=== PATIENT | male | born 1945 | race Caucasian/White ===

== ENCOUNTER 2018-02-26 21:15 | Inpatient (IN) ==
--- OUTSIDE RECORDS SUMMARY | 2018-02-26 21:33 | External Medical Summary | Referral Summary ---
:1945 Author Organization [facility], [facility] Address [address] [place] [address] [place] [address] Care Team Providers Name Role Phone Paul Earl Barragan Primary Care Physician Encounter VC Date(s): 06/12/17 - 06/12/17 [facility] [address] [place] [address] [place] Discharge Disposition: 01-Home or Self Care Attending Physician: Tania Negro APRN Admitting Physician: Tania Negro APRN Vital Signs Most recent to oldest [Reference Range]: 1 Temperature Tympanic [36.6-38.1 degC] 36.7 degC (06/12/17 1:33 PM) Peripheral Pulse Rate [60-100 bpm] 74 bpm (06/12/17 1:33 PM) Blood Pressure [90-140/60-90 mmHg] 116/54 mmHg (06/12/17 1:33 PM) SpO2 98 % (06/12/17 1:33 PM) Problem List Condition Effective Dates Status Health Status Informant Abscess of buttock, right(Confirmed) Active Angina(Confirmed) Resolved Benign essential HTN(Confirmed) Active BPH (benign prostatic Active hypertrophy)(Confirmed) CA - Cancer of colon(Confirmed) 2009 Resolved CAD (coronary artery Resolved disease)(Confirmed) CKD (chronic kidney disease), stage Active III(Confirmed) Colostomy(Confirmed) Resolved Colostomy in place(Confirmed) Active Coronary artery disease(Confirmed) Active Diabetes mellitus(Confirmed) Resolved Type II diabetes mellitus with Active peripheral autonomic neuropathy(Confirmed) Diabetic peripheral < 07/10/16 Resolved neuropathy(Confirmed) Gallbladder disease(Confirmed) Resolved Gout(Confirmed) Resolved History of rectal cancer(Confirmed)1 05/01/10 Active Hyperlipidemia(Confirmed) Active Hypertension(Confirmed) Resolved Irregular heart beat(Confirmed) Resolved Nephrolithiasis(Confirmed) Resolved Obesity(Confirmed) Active patient Peripheral artery disease(Confirmed) Active Diabetes mellitus, type Resolved II(Confirmed) 1Was rectal Cancer on document-05/01/2010 Allergies, Adverse Reactions, Alerts Substance Reaction Severity Status acetaminophen Severe Active shellfish Active Medications allopurinol 100 mg oral tablet 200 mg 2 tabs, Oral, Daily, # 60 tabs, 1 Refill(s), Pharmacy: [id number], 2 tabs Oral Daily Start Date: 03/27/17 Status: OrderedALLOPURINOL 100MG TABLETS See Instructions, TAKE 1 TABLET BY MOUTH DAILY, # 30 tabs, 5 Refill(s), eRx: [facility] [id number], TAKE 1 TABLET BY MOUTH DAILY Start Date: 03/01/17 Status: Orderedaspirin 325 mg oral tablet 325 mg 1 tabs, Oral, Daily, 0 Refill(s) Start Date: 12/27/15 Status: Orderedatorvastatin 40 mg oral tablet See Instructions, TAKE 1 TABLET BY MOUTH EVERY DAY, # 90 tabs, eRx: [facility] [id number] Start Date: 04/15/17 Status: OrderedB-D PEN NDL SHRT [id number](03/19) LUIS F See Instructions, USE TWICE DAILY DIRECTED, # 100 unknown unit, JUAN M, eRx: [facility] [id number], USE TWICE DAILY DIRECTED Start Date: 08/12/14 Status: Orderedcholecalciferol 2000 intl units oral capsule 2,000 Intl_Units 1 caps, Oral, Daily, 0 Refill(s) Start Date: 01/09/17 Status: OrderedCoenzyme Q10 200 mg oral capsule 1 capsule, Oral, Daily, 0 Refill(s) Start Date: 01/09/17 Status: Orderedcontour next test strips contour next test strips, See Instructions, Check blood sugar fasting and 2 hours after meals. DX 250.02, # 100 Each, 0 Refill(s), Pharmacy: [id number], Check blood sugar fasting and 2hours after meals. DX 250.02 Start Date: 06/16/14 Status: Orderedfinasteride 5 mg oral tablet See Instructions, TAKE 1 TABLET BY MOUTH EVERY DAY, # 90 tabs, 1 Refill(s), eRx : [facility], TAKE 1 TABLET BY MOUTH EVERY DAY Start Date: 03/14/17 Status: OrderedGlucometer Lancets (DME) DME Item check blood sugar fasting and 2 hours after meals DX 250.02, See Instructions, # 100 Each,0 Refill(s), Pharmacy: [facility], check blood sugar fasting and 2 hours after mealsDX 250.02, Supply Start Date: 06/16/14 Status: Orderedlisinopril 2.5 mg oral tablet 2.5 mg 1 tabs, Oral, Daily, 0 Refill(s) Start Date: 05/17/17 Status: Orderedmeclizine 25 mg oral tablet 25 mg 1 tabs, Oral, TID, as needed for dizziness, 0 Refill(s) Start Date: 12/27/15 Status: OrderedMetoprolol Tartrate 50 mg oral tablet See Instructions, TAKE 1 TABLET BY MOUTH TWICE DAILY, # 180 tabs, 1 Refill(s), eRx: [facility], TAKE 1 TABLET BY MOUTH TWICE DAILY Start Date: 03/01/17 Status: OrderedMobic 15 mg oral tablet 15 mg 1 tabs, Oral, Daily, # 14 tabs, 0 Refill(s), Pharmacy: [facility], 1 tabs OralDaily Start Date: 03/14/17 Status: OrderedNitrostat 0.4 mg sublingual tablet 0.4 mg 1 tabs, SubLingual, q5min, as needed for chest pain, # 25 tabs, 11 Refill (s), Pharmacy: [facility], 1 tabs SubLingual q5min,x30 days,PRN:as needed for chest pain Start Date: 10/03/15 Stop Date: 09/27/16 Status: OrderedNovoLOG Mix 70/30 FlexPen subcutaneous suspension See Instructions, INJECT 38 UNITS EVERY MORNING AND 38 UNITS AT SUPPER DX E11.43 , # 6 boxes, 3 Refill(s), JUAN M, Pharmacy: [facility] [address] Start Date: 10/09/16 Status: OrderedOstemy supplies Ostemy supplies, See Instructions, DX: 153.9 Fax to [facility] [phone] , # 100 Each, 2 Refill(s) Start Date: 10/19/14 Status: OrderedPlavix 75 mg oral tablet 75 mg 1 tabs, Oral, Daily, 0 Refill(s) Start Date: 12/27/15 Status: Orderedpsyllium 3.4 g/3.7 g oral powder for reconstitution 1.7 g, Oral, BID, as needed for diarrhea, # 300 g, 0 Refill(s) Start Date: 01/09/17 Status: Orderedtamsulosin 0.4 mg oral capsule See Instructions, TAKE 1 CAPSULE BY MOUTH ONCE DAILY MAY TAKE SECOND CAPSULE DAILY NEEDED FOR URINARY RETENTION, # 110 caps, eRx: [facility] [id number], TAKE 1 CAPSULE BY MOUTH ONCE DAILY MAY TAKE SECOND CAPSULE DAILY NEEDED FOR URINARY RET... Start Date: 04/15/17 Status: OrderedVitamin B12 2,500 mcg, Daily, 0 Refill(s) Start Date: 01/07/17 Status: OrderedVitamin C 1,000 mg, Daily, 0 Refill(s) Start Date: 01/07/17 Status: Orderedvitamin E 1,000 Intl_Units, Oral, Daily, 0 Refill(s) Start Date: 01/07/17 Status: Ordered Immunizations Given and Recorded Vaccine Date Status Refusal Reason meningococcal conjugate vaccine1 05/31/17 Given influenza virus vaccine, inactivated2 11/04/15 Recorded influenza virus vaccine, inactivated 08/04/15 Recorded influenza virus vaccine, inactivated 08/06/14 Recorded pneumococcal 13-valent conjugate vaccine 08/04/15 Recorded pneumococcal 23-polyvalent vaccine 08/06/14 Given tetanus/diphtheria/pertussis, acel(Tdap) 11/04/11 Recorded 1Result Comment: MenCYW-135 liquid conjugate component Lot: [id number] Exp: [id number] Comment: [01/07/2017] Patient states he had Fall of 2015. Procedures Procedure Date Related Diagnosis Body Site Placement of stent1 08/15/16 Inpatient Auditor 04/11/16 Placement of stent2 12/19/15 Normal colonoscopy3 08/25/15 Diabetic eye exam4 04/11/15 Carotid endarterectomy5 07/26/14 Colonoscopy6, 7 05/06/14 Cholecystectomy8 05/26/12 Repair of incisional hernia9 05/26/12 Cardiac azeqxvfoubcyhji06 02/14/11 Insertion of implantable venous access port11 06/26/10 Efbsqpezp64 2009 Partial colectomy 2010 Cardiac owuvbybysrgrcle74 2004 CABG - Coronary artery bypass graft14 1998 Knee replacement Mpatonhqlgkqs58 Vasectomy 1Stent oxskfisux0bmzcf iwayaegfc2Dkvevzqq history of colon/rectal cancer, repeat in 3 hmikr3zk diabetic retinopathy see scanned pxqmeskx1Wkfas carotid endarterectomy on July 26, 2014. Dr. Ruff recommended yearly carotid ultrasound to monitor.6No polyps found in [address]Nr of Rectal Ca- 05/01/20108Open cholecystectomy with repair incarcerated incisional ekjyuq1Brfricrcjkhc incisional hernia repair at the same time as cholecystectomy, done in [place]00[place] 50% no stents, grafts remain kzmhor90abgqzyy external jugular wihcich was dissected proximally and distally with 3-0 knuz82UW resection for rectal epjhxo94YQI to RCA patent. SULLIVAN to LAD patent.142 nxfgdg43Rtggxzgkc cataract surgery, fall Social History Social History Type Response Smoking Status Former smoker; Type: Cigarettes1 1smoked for 2 years as a teen.
--- OUTSIDE RECORDS SUMMARY | 2018-02-26 21:33 | External Medical Summary | Clinical Summary ---
:1945 Author Organization [facility] Address [address] [address] Care Team Providers Name Role Phone Unavailable Primary Care Provider Unavailable Allergies Active Allergy Reactions Severity Noted Date Comments Iodinated Diagnostic Agents Shortness Of Breath High 04/15/2015 Shellfish-Derived Products Shortness Of Breath High 04/15/2015 Current Medications Prescription Sig. Disp. Refills Start Date End Date Status famotidine (PEPCID) 20 MG Take 1 tablet 10 tablet 0 04/16/2015 Active tablet (20 mg total) by mouth 2 (two) times daily. methylPREDNISolone Take 1 tablet 21 tablet 0 04/16/2015 Active (MEDROL DOSEPACK) 4 MG (4 mg total) tablet by mouth See Admin Instructions. diphenhydrAMINE Take 2 20 capsule 0 04/16/2015 Active (BENADRYL) 25 mg capsule capsules (50 mg total) by mouth every 6 (six) hours as needed for Itching. Active Problems Not on file Social History Tobacco Use Types Packs/Day Years Used Date Never Smoker Alcohol Use Drinks/Week oz/Week Comments No Sex Assigned at Date Recorded Not on file Last Filed Vital Signs Vital Sign Reading Time Taken Blood Pressure 139/61 04/16/2015 12:45 AM CDT Pulse 67 04/16/2015 12:45 AM CDT Temperature 36.8 C (98.3 F) 04/15/2015 10:44 PM CDT Respiratory Rate 15 04/16/2015 12:45 AM CDT Oxygen Saturation 94% 04/16/2015 12:45 AM CDT Inhaled Oxygen Concentration - - Weight 96.2 kg (212 lb) 04/15/2015 10:44 PM CDT Height 177.8 cm (5' 10") 04/15/2015 10:44 PM CDT Body Mass Index 30.42 04/15/2015 10:44 PM CDT Plan of Treatment Health Maintenance Due Date Last Done Comments DTaP,Tdap,and Td Vaccines (1 - Tdap) 1962 Colon Cancer Screening 1993 Zoster Recombinant Vaccine (RZV,Shingrix) (1 of 2 - SV 1993 2 Dose Standard) Pneumo-Adult (1 of 2 - PCV13) 2008 Annual Wellness Visit 06/11/2009 Influenza Vaccine (Season Ended) 2018 Results Not on filefrom Last 3 Months
--- OUTSIDE RECORDS SUMMARY | 2018-02-26 21:34 | External Medical Summary | Referral Summary ---
:1945 Author Organization [facility] Address [address] [place] [address] Care Team Providers Name Role Phone ItaloEarl garrett Yung Primary Care Physician Encounter VC Date(s): 08/07/17 - 08/07/17 [facility] [address] [place] [address]- Discharge Disposition: 01-Home or Self Care Attending Physician: Anthony Segura MD Problem List Condition Effective Dates Status Health [...] Severe Active shellfish Active Medications allopurinol 100 mg, Oral, BID, 0 Refill(s) Start Date: 08/07/17 Status: Orderedaspirin 325 mg oral tablet 325 mg 1 tabs, Oral, Daily, 0 Refill(s) Start Date: 12/27/15 Status: Orderedatorvastatin 40 mg, Oral, Daily, 0 Refill(s) Start Date: 08/07/17 Status: Orderedfinasteride 5 mg, Oral, Daily, 0 Refill(s) Start Date: 08/07/17 Status: Orderedlisinopril 5 mg, Oral, Daily, 0 Refill(s) Start Date: 08/07/17 Status: OrderedMetoprolol Tartrate 50 mg, Oral, BID, 0 Refill(s) Start Date: 08/07/17 Status: OrderedNitrostat 0.4 mg sublingual tablet 0.4 mg 1 tabs, SubLingual, q5min, as needed for chest pain, # 25 tabs, 11 Refill (s), Pharmacy: [facility], 1 tabs SubLingual q5min,x30 days,PRN:as needed for chest pain Start Date: 10/03/15 Stop Date: 09/27/16 Status: OrderedNovoLOG Mix 70/30 36 units, SubCutaneous, BIDAC, 0 Refill(s) Start Date: 08/07/17 Status: OrderedPlavix 75 mg oral tablet 75 mg 1 tabs, Oral, Daily, 0 Refill(s) Start Date: 12/27/15 Status: Orderedtamsulosin 0.4 mg, Oral, Daily, 0 Refill(s) Start Date: 08/07/17 Status: OrderedVitamin B12 2,500 mcg, Oral, Daily, 0 Refill(s) Start Date: 01/07/17 Status: Orderedvitamin E 1,000 Intl_Units, Oral, Daily, 0 Refill(s) Start Date: 01/07/17 Status: Ordered Results Hematology Most recent to oldest [Reference Range]: 1 WBC [4.8-10.8 10*3/uL] 6.6 10*3/uL (08/07/17 12:03 PM) RBC [4.60-6.20] 4.18 *LOW* (08/07/17 12:03 PM) Hgb [14.0-18.0 gm/dL] 12.8 gm/dL *LOW* (08/07/17 12:03 PM) Hct [42.0-52.0 %] 38.0 % *LOW* (08/07/17 12:03 PM) MCV [82.0-99.0 fL] 90.9 fL (08/07/17:03 PM) MCH [27.0-32.0 pg] 30.6 pg (08/07/17: PM) MCHC [32.0-36.0 gm/dL] 33.7 gm/dL (08/07/17:03 PM) RDW [11.5-14.5 %] 14.4 % (08/07/17: PM) Platelet [150-400 10*3/uL] 109 10*3/uL *LOW* (08/07/17: PM) MPV [9.4-12.3 fL] 11.6 fL (08/07/17: PM) Coagulation Most recent to oldest [Reference Range]: 1 INR [0.9-1.2] 1.1 (08/07/17: PM) PTT [25.0-35.0 seconds] 27.4 seconds (08/07/17: PM) Chemistry Most recent to oldest [Reference Range]: 1 Sodium Lvl [136-144 mEq/L] 136 mEq/L (08/07/17: PM) Potassium Lvl [3.6-5.1 mEq/L] 4.7 mEq/L (08/07/17: PM) Chloride [99-109 mEq/L] 102 mEq/L (08/07/17: PM) CO2 [22-32 mEq/L] 26 mEq/L (08/07/17: PM) AGAP [3-20 mEq/L] 8 mEq/L (08/07/17: PM) BUN [4-20 mg/dL] 29 mg/dL *HI* (08/07/17: PM) Glucose Lvl [70-100 mg/dL] 170 mg/dL *HI* (08/07/17: PM) Creatinine Lvl [0.64-1.27 mg/dL] 1.61 mg/dL *HI* (08/07/17 12: PM) eGFR [>60 mL/min] 42 mL/min 1 *ABN* (08/07/17: PM) Calcium Lvl [8.6-10.0 mg/dL] 9.3 mg/dL (08/07/17 12:03 PM) 1Result Comment: Multiply eGFR results by 1.21 for race. Immunizations Given and Recorded Vaccine Date Status Refusal Reason influenza virus vaccine, inactivated1 06/26/17 Recorded influenza virus vaccine, inactivated2 11/04/15 Recorded influenza virus vaccine, inactivated 08/04/15 Recorded influenza virus vaccine, inactivated 08/06/14 Recorded meningococcal conjugate vaccine3 05/31/17 Given pneumococcal 13-valent conjugate vaccine 08/04/15 Recorded pneumococcal 23-polyvalent vaccine 08/06/14 Given tetanus/diphtheria/pertussis, acel(Tdap) 11/04/11 Recorded 1Result Comment: [06/27/2017] DONE AT [id number] Comment: [01/07/2017] Patient states he had Fall of 2015.3Result Comment: MenCYW-135 liquid conjugate component Lot: [id number] Exp: 07/2018 Procedures Procedure Date Related Diagnosis Body Site Collection of venous blood by venipuncture 08/07/17 Placement of stent1 08/15/16 Physical Therapy Supervisor 04/11/16 Placement of stent2 12/19/15 Normal colonoscopy3 08/25/15 Diabetic eye exam4 04/11/15 Carotid endarterectomy5 07/26/14 Colonoscopy6, 7 05/06/14 Cholecystectomy8 05/26/12 Repair of incisional hernia9 05/26/12 Cardiac jfudjtwvxmhcpwa17 02/14/11 Insertion of implantable venous access port11 06/26/10 Ojppieitd23 2009 Partial colectomy 2009 Cardiac iktmxxxmclyilxg32 2004 CABG - Coronary artery bypass graft14 1998 Meniscus of knee joint15 Adwdiqkfufvxf19 Vasectomy 1Stent ivuthicke3havlx bjxehjskx0Wymondtt history of colon/rectal cancer, repeat in 3 zhbrn5mf diabetic retinopathy see scanned hnhivylu8Eflpb carotid endarterectomy on July 26, 2014. Dr. Ruff recommended yearly carotid ultrasound to monitor.6No polyps found in [address]Zl of Rectal Ca- 05/01/20108Open cholecystectomy with repair incarcerated incisional hwjitw2Mcqyxawgkplo incisional hernia repair at the same time as cholecystectomy, done in Mjnhnfihaxdk17TU 50% no stents, grafts remain agnqtl61rpzivik external jugular wihcich was dissected proximally and distally with 3-0 pwpu83OW resection for rectal huhyvr03FWI to RCA patent. SULLIVAN to LAD patent.142 jmamub40lwhv knee wqcheb97Mxyfccvqg cataract surgery, fall 2015 Social History Social History Type Response Smoking Status Former smoker; Type: Cigarettes1 entered on: 01/07/17 1smoked for 2 years as a teen.
--- OUTSIDE RECORDS SUMMARY | 2018-02-26 21:34 | External Medical Summary | Referral Summary ---
:1945 Author Organization [facility] Address [address] [place] [address] [place] [address] Care Team Providers Name Role Phone Paul Earl Yung Primary Care Physician Encounter VC Date(s): 06/25/17 - 06/25/17 [facility] [address] [place] [address]- [place] Discharge Disposition: 01-Home or Self Care Attending Physician: Tania Negro APRN Admitting Physician: Tania Negro APRN Vital Signs Most recent to oldest [Reference Range]: 1 Peripheral Pulse Rate [60-100 bpm] 70 bpm (06/25/17 9:17 AM) Blood Pressure [90-140/60-90 mmHg] 130/68 mmHg (06/25/17 9:17 AM) SpO2 98 % (06/25/17 9:17 AM) Problem List Condition Effective Dates Status Health [...] Daily, # 60 tabs, 1 Refill(s), Pharmacy: [facility] [address], 2 tabs Oral Daily Start Date: 03/27/17 Status: OrderedALLOPURINOL 100MG TABLETS See Instructions, TAKE 1 TABLET BY MOUTH DAILY, # 30 tabs, 5 Refill(s), eRx: [facility] [id number], TAKE 1 TABLET BY MOUTH DAILY Start Date: 03/01/17 Status: Orderedaspirin 325 mg oral tablet 325 mg 1 tabs, Oral, Daily, 0 Refill(s) Start Date: 12/27/15 Status: Orderedatorvastatin 40 mg oral tablet See Instructions, TAKE 1 TABLET BY MOUTH EVERY DAY, # 90 tabs, eRx: [facility] [address] Start Date: 04/15/17 Status: OrderedB-D PEN NDL SHRT 35WX8MM(03/19) LUIS F See Instructions, USE TWICE DAILY DIRECTED, # 100 unknown unit, JUAN M, eRx: [facility] [id number], USE TWICE DAILY DIRECTED Start Date: 08/12/14 [...] 250.02, # 100 Each, 0 Refill(s), Pharmacy: [facility] [address], Check blood sugar fasting and 2hours after meals. DX 250.02 Start Date: 06/16/14 Status: Orderedfinasteride 5 mg oral tablet See Instructions, TAKE 1 TABLET BY MOUTH EVERY DAY, # 90 tabs, 1 Refill(s), eRx : [facility] [id number], TAKE 1 TABLET BY MOUTH EVERY DAY Start Date: 03/14/17 Status: OrderedGlucometer Lancets (DME) DME Item check blood sugar fasting and 2 hours after meals DX 250.02, See Instructions, # 100 Each,0 Refill(s), Pharmacy: [facility] [address], check blood sugar fasting and 2 hours [...] DAILY, # 180 tabs, 1 Refill(s), eRx: [facility], TAKE 1 TABLET BY MOUTH TWICE DAILY Start Date: 03/01/17 Status: OrderedMobic 15 mg oral tablet 15 mg 1 tabs, Oral, Daily, # 14 tabs, 0 Refill(s), Pharmacy: [facility], 1 tabs OralDaily Start Date: 03/14/17 Status: OrderedNitrostat 0.4 mg sublingual tablet 0.4 mg 1 tabs, SubLingual, q5min, as needed for chest pain, # 25 tabs, 11 Refill (s), Pharmacy: [facility], 1 tabs SubLingual q5min,x30 days,PRN:as needed for chest pain Start Date: 10/03/15 Stop Date: 09/27/16 Status: OrderedNovoLOG Mix 70/30 FlexPen subcutaneous suspension See Instructions, INJECT 38 UNITS EVERY MORNING AND 38 UNITS AT SUPPER DX E11.43 , # 6 boxes, 3 Refill(s), JUAN M, Pharmacy: [facility] [address] Start Date: 10/09/16 Status: OrderedOstemy supplies Ostemy supplies, See Instructions, DX: 153.9 Fax to [facility] [phone] , # 100 Each, 2 Refill(s) Start [...] FOR URINARY RETENTION, # 110 caps, eRx: [facility] [address], TAKE 1 CAPSULE BY MOUTH ONCE DAILY MAY TAKE SECOND CAPSULE DAILY NEEDED FOR URINARY RET... Start Date: 04/15/17 Status: OrderedTopicort 0.05% topical cream 1 lorena, Topical, TID, # 60 g, 0 Refill(s), Pharmacy: [facility] [address] Start Date: 06/25/17 Status: OrderedVitamin B12 2,500 mcg, Daily, 0 [...] 1Result Comment: MenCYW-135 liquid conjugate component Lot: [id number] Exp: [id number] Comment: [01/07/2017] Patient states he had Fall of 2015. Procedures Procedure Date Related Diagnosis Body Site Placement of stent1 08/15/16 Manager Emergency Department 04/11/16 Placement of stent2 12/19/15 Normal colonoscopy3 08/25/15 Diabetic eye exam4 04/11/15 Carotid endarterectomy5 07/26/14 Colonoscopy6, 7 05/06/14 Cholecystectomy8 05/26/12 Repair of incisional hernia9 05/26/12 Cardiac kfezauueoafcbln56 02/14/11 Insertion of implantable venous access port11 06/26/10 Qrqvejsvh49 2009 Partial colectomy 2010 Cardiac tpvbfheciuyyfug58 2004 CABG - Coronary artery bypass graft14 1998 Knee replacement Hvwgrucwxxqwh44 Vasectomy 1Stent dugpldveo3xuvko olbipqlru9Dhdpxura history of colon/rectal cancer, repeat in 3 cwiol0mf diabetic retinopathy see scanned owxgtnsd7Shaua carotid endarterectomy on July 26, 2014. Dr. Ruff recommended yearly carotid ultrasound to monitor.6No polyps found in [address]Yy of Rectal Ca- 05/01/20108Open cholecystectomy with repair incarcerated incisional cfkbux6Lpwtrfyqgila incisional hernia repair at the same time as cholecystectomy, done in [place]av[place]yirkpbs[place] 50% no stents, grafts remain oekzjb19joybpmt external jugular wihcich was dissected proximally and distally with 3-0 hpey01BC resection for rectal ejzdcw17BER to RCA patent. SULLIVAN to LAD patent.142 inlqht91Vylgpnnjq cataract surgery, fall Social History Social History Type Response Smoking Status Former smoker; Type: Cigarettes1 1smoked for 2 years as a teen.
--- OUTSIDE RECORDS SUMMARY | 2018-02-26 21:35 | External Medical Summary | Referral Summary ---
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 Discharge Diagnosis: Gout Discharge Disposition: 01-Home or Self Care Attending Physician: Earl Miller MD Admitting Physician: Earl Miller MD Vital Signs Most recent to oldest [Reference Range]: 1 Peripheral Pulse Rate [60-100 bpm] 68 bpm (02/15/17 10:50 AM) Respiratory Rate [14-20 br/min] 20 br/min (02/15/17 10:50 AM) Blood Pressure [90-140/60-90 mmHg] 144/70 mmHg *HI* (02/15/17 10:50 AM) SpO2 96 % (02/15/17 10:50 AM) Problem List Condition Effective Dates Status [...] Active Medications allopurinol 100 mg oral tablet 100 mg 1 tabs, Oral, Daily, # 30 tabs, 6 Refill(s), Pharmacy: [facility] [id number], 1 tabs Oral Daily Start Date: 07/30/16 Status: Orderedaspirin 325 mg oral tablet 325 mg 1 tabs, Oral, Daily, 0 Refill(s) Start Date: 12/27/15 Status: Orderedatorvastatin 40 mg oral tablet See Instructions, TAKE 1 TABLET BY MOUTH EVERY DAY, # 90 tabs, eRx: [facility] [id number], TAKE1 TABLET BY MOUTH EVERY DAY Start Date: 01/08/17 Status: OrderedB-D PEN NDL SHRT [id number](03/19) LUIS F See Instructions, USE TWICE DAILY DIRECTED, # 100 unknown unit, JUAN M, eRx: [facility] [id number], USE TWICE DAILY DIRECTED Start Date: 08/12/14 [...] 250.02, # 100 Each, 0 Refill(s), Pharmacy: [facility] [id number], Check blood sugar fasting and 2hours after meals. DX 250.02 Start Date: 06/16/14 Status: Orderedfinasteride 5 mg oral tablet 5 mg 1 tabs, Oral, Daily, # 90 tabs, 1 Refill(s), Pharmacy: [facility] [id number], 1 tabs Oral Daily Start Date: 07/10/16 Status: OrderedGlucometer Lancets (DME) DME Item check blood sugar fasting and 2 hours after meals DX 250.02, See Instructions, # 100 Each,0 Refill(s), Pharmacy: [facility] [id number], check blood sugar fasting and 2 hours after mealsDX 250.02, Supply Start Date: 06/16/14 Status: Orderedmeclizine 25 mg oral tablet 25 mg 1 tabs, Oral, TID, as needed for dizziness, 0 Refill(s) Start Date: 12/27/15 Status: Orderedmetoprolol tartrate 50 mg oral tablet 50 mg 1 tabs, Oral, BID, # 180 tabs, 1 Refill(s), Pharmacy: [facility] [id number] Start Date: 07/10/16 Status: OrderedNitrostat 0.4 mg sublingual tablet 0.4 mg 1 tabs, SubLingual, q5min, as needed for chest pain, # 25 tabs, 11 Refill (s), Pharmacy: [id number], 1 tabs SubLingual q5min,x30 days,PRN:as needed for chest pain Start Date: 10/03/15 Stop Date: 09/27/16 Status: OrderedNovoLOG Mix 70/30 FlexPen subcutaneous suspension See Instructions, INJECT 38 UNITS EVERY MORNING AND 38 UNITS AT SUPPER DX E11.43 , # 6 boxes, 3 Refill(s), JUAN M, Pharmacy: [facility] [id number] Start Date: 10/09/16 Status: OrderedOstemy supplies Ostemy supplies, See Instructions, DX: 153.9 Fax to [facility] [phone] , # 100 Each, 2 Refill(s) Start Date: 10/19/14 Status: OrderedPlavix 75 mg oral tablet 75 mg 1 tabs, Oral, Daily, 0 Refill(s) Start Date: 12/27/15 Status: Orderedpsyllium 3.4 g/3.7 g oral powder for reconstitution 1.7 g, Oral, BID, as needed for diarrhea, # 300 g, 0 Refill(s) Start Date: 01/09/17 Status: Orderedtamsulosin 0.4 mg oral capsule 0.4 mg 1 caps, Oral, Daily, May take a second dose in the day as needed for urinary retention, # 90 caps, 1 Refill(s), Pharmacy: [facility] [id number] , 1 caps Oral Daily,x90 days,Instr:May take a second dose in the day as needed for urinary reten... Start Date: 07/10/16 Stop Date: 01/06/17 Status: OrderedVitamin B12 2,500 mcg, Daily, 0 Refill(s) Start Date: 01/07/17 Status: OrderedVitamin C 1,000 mg, Daily, 0 Refill(s) Start Date: 01/07/17 Status: Orderedvitamin E 1,000 Intl_Units, Oral, Daily, 0 Refill(s) Start Date: 01/07/17 Status: Ordered Results Chemistry Most recent to oldest [Reference Range]: 1 Uric Acid [3.5-7.2 mg/dL] 7.6 mg/dL *HI* (02/15/17 11:45 AM) Immunizations Given and Recorded Vaccine Date Status Refusal Reason influenza virus vaccine, inactivated1 11/04/15 Recorded influenza virus vaccine, inactivated 08/04/15 Recorded influenza virus vaccine, inactivated 08/06/14 Recorded pneumococcal 13-valent conjugate vaccine 08/04/15 Recorded pneumococcal 23-polyvalent vaccine 08/06/14 Given tetanus/diphtheria/pertussis, acel(Tdap) 11/04/11 Recorded 1Result Comment: [01/07/2017] Patient states he had Fall of 2015. Procedures Procedure Date Related Diagnosis Body Site Placement of stent1 08/15/16 Vp Legal Affairs 04/11/16 Placement of stent2 12/19/15 Normal colonoscopy3 08/25/15 Diabetic eye exam4 04/11/15 Carotid endarterectomy5 07/26/14 Colonoscopy6, 7 05/06/14 Cholecystectomy8 05/26/12 Repair of incisional hernia9 05/26/12 Cardiac sjwtupxewfhvrnc01 02/14/11 Insertion of implantable venous access port11 06/26/10 Sxdfmvyvb93 2009 Partial colectomy 2010 Cardiac lrepyejeynuflqo23 2004 CABG - Coronary artery bypass graft14 1998 Knee replacement Buhvbvtthuzmx35 Vasectomy 1Stent uypaveulo6cpdzx tcquffkbp4Fdbscreu history of colon/rectal cancer, repeat in 3 oausq3jf diabetic retinopathy see scanned sxeyyjzu5Zcmjg carotid endarterectomy on July 26, 2014. Dr. Ruff recommended yearly carotid ultrasound to monitor.6[place]ps [place] [address]Ui of Rectal Ca- 05/01/20108Open cholecystectomy with repair incarcerated incisional gajxda1Kiorgxuaoyfz incisional hernia repair at the same time as cholecystectomy, done in Vvqcmignltdm41LD 50% no stents, grafts remain pvdmok85qtvebtx external jugular wihcich was dissected proximally and distally with 3-0 ooiq60WF resection for rectal azkpno63ZZA to RCA patent. SULLIVAN to LAD patent.142 aqqcth24Fgmbuwkoy cataract surgery, fall Social History Social History Type Response Smoking Status Former smoker; Type: Cigarettes1 1smoked for 2 years as a teen. Assessment and Plan Extracted from: Title: CRMMP Author: Earl Miller MD Date: 02/15/17 Impression and Plan Diagnosis Personal history of other malignant neoplasm of large intestine (XAD79-QA Z85.038, Discharge, Medical). Benign essential HTN (TYJ65-RC I10, Discharge, Medical). 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 Gout (HDO29-RS M10.9, Discharge, Medical). CKD (chronic kidney disease), stage III (TSN72-EB N18.3, Discharge, Medical). Hyperlipidemia (CXJ89-WD E78.5, Discharge, Medical). Orders Orders (Selected) Outpatient Orders Future (On Hold) Uric Acid: .
--- OUTSIDE RECORDS SUMMARY | 2018-02-26 21:35 | External Medical Summary | Referral Summary ---
:1945 Author Organization [facility] Address [address] [place] [address] Care Team Providers Name Role Phone ItaloEarl garrett Yung Primary Care Physician Encounter VC Date(s): 09/17/17 - 09/18/17 [facility] [address] [place] [address] [place] Discharge Diagnosis: Sensory hearing loss, bilateral Discharge Disposition: 01-Home or Self Care Attending Physician: Anthony Segura MD Admitting Physician: Anthony Segura MD Vital Signs Most recent to oldest [Reference Range]: 1 Temperature Oral [35.8-37.3 degC] 37 degC (09/18/17 7:00 AM) Temperature Temporal Artery [36.3-37.8 degC] 35.8 degC *LOW* (09/17/17 5:00 PM) Peripheral Pulse Rate [60-100 bpm] 64 bpm (09/17/17 7:57 PM) Heart Rate Monitored [60-100 bpm] 73 bpm (09/18/17 7:00 AM) Respiratory Rate [14-20 br/min] 18 br/min (09/18/17 7:00 AM) Blood Pressure [90-140/60-90 mmHg] 127/60 mmHg (09/18/17 7:00 AM) Mean Arterial Pressure, Cuff 105 mmHg (09/17/17 5:00 PM) SpO2 94 % (09/18/17 7:00 AM) Remote Telemetry Ongoing (09/18/17 5:24 AM) Problem List Condition Effective Dates Status Health Status Informant Abscess of buttock, right(Confirmed) Active Acute pain(Confirmed) Active Angina(Confirmed) Resolved Benign essential HTN(Confirmed) Active [...] Reactions, Alerts Substance Reaction Severity Status acetaminophen Hive Severe Active shellfish Hive Active iodine Hive Active Medications allopurinol 100 mg, Oral, BID, 0 Refill(s) Start Date: 08/07/17 Status: Orderedaspirin 325 mg oral tablet 325 mg 1 tabs, Oral, Daily, 0 Refill(s) Start Date: 12/27/15 Status: Orderedatorvastatin 40 mg, Oral, Daily, 0 Refill(s) Start Date: 08/07/17 Status: Orderedfinasteride 5 mg, Oral, Daily, 0 Refill(s) Start Date: 08/07/17 Status: Orderedlisinopril 5 mg, Oral, Daily, 0 Refill(s) Start Date: 08/07/17 Status: Orderedmeclizine 25 mg oral tablet 25 mg 1 tabs, Oral, q6hr, Vertigo/Motion Sickness, # 30 tabs, 0 Refill(s), Pharmacy: [facility] [id number], 1 tabs Oral q6hr,PRN:Vertigo/Motion Sickness Start Date: 09/18/17 Stop Date: 10/22/17 Status: OrderedMetoprolol Tartrate 50 mg, Oral, BID, 0 Refill(s) Start Date: 08/07/17 Status: OrderedNitrostat 0.4 mg sublingual tablet 0.4 mg 1 tabs, SubLingual, q5min, as needed for chest pain, # 25 tabs, 11 Refill (s), Pharmacy: [id number], 1 tabs SubLingual q5min,x30 days,PRN:as needed for chest pain Start Date: 10/03/15 Stop Date: 09/27/16 Status: OrderedNovoLOG Mix 70/30 36 units, SubCutaneous, BIDAC, 0 Refill(s) Start Date: 08/07/17 Status: Orderedtamsulosin 0.4 mg, Oral, Daily, 0 Refill(s) Start Date: 08/07/17 Status: OrderedVitamin B12 2,500 mcg, Oral, Daily, 0 Refill(s) Start Date: 01/07/17 Status: OrderedVitamin D3 0 Refill(s) Start Date: 09/17/17 Status: Orderedvitamin E 1,000 Intl_Units, Oral, Daily, 0 Refill(s) Start Date: 01/07/17 Status: Ordered Results Hematology Most recent to oldest [Reference Range]: 1 WBC [4.8-10.8 10*3/uL] 10.7 10*3/uL (09/18/17 4:40 AM) RBC [4.60-6.20] 3.89 *LOW* (09/18/17 4:40 AM) Hgb [14.0-18.0 gm/dL] 11.8 gm/dL *LOW* (09/18/17 4:40 AM) Hct [42.0-52.0 %] 35.2 % *LOW* (09/18/17 4:40 AM) MCV [82.0-99.0 fL] 90.5 fL (09/18/17 4:40 AM) MCH [27.0-32.0 pg] 30.3 pg (09/18/17 4:40 AM) MCHC [32.0-36.0 gm/dL] 33.5 gm/dL (09/18/17 4:40 AM) RDW [11.5-14.5 %] 14.2 % (09/18/17 4:40 AM) Platelet [150-400 10*3/uL] 105 10*3/uL *LOW* (09/18/17 4:40 AM) MPV [9.4-12.3 fL] 11.5 fL (09/18/17 4:40 AM) Immature Granulocytes [0.0-1.0 %] 0.3 % (09/18/17 4:40 AM) Neutrophils [51-75 %] 84 % *HI* (09/18/17 4:40 AM) Lymphocytes [20-46 %] 8 % *LOW* (09/18/17 4:40 AM) Monocytes [4-11 %] 8 % (09/18/17 4:40 AM) Eosinophils [0-4 %] 0 % (09/18/17 4:40 AM) Basophils [0-2 %] 0 % (09/18/17 4:40 AM) Neutro Absolute [1.90-7.00] 8.98 *HI* (09/18/17 4:40 AM) Lymph Absolute [0.80-3.30] 0.86 (09/18/17 4:40 AM) [place] Absolute [0.30-1.00] 0.85 (09/18/17 4:40 AM) Eos Absolute [0.00-0.50] 0.00 (09/18/17 4:40 AM) Baso Absolute [0.00-0.20] 0.00 (09/18/17 4:40 AM) Nucleated RBC Automated [0 /100 WBC] 0.0 /100 WBC (09/18/17 4:40 AM) Coagulation Most recent to oldest [Reference Range]: 1 INR [0.9-1.2] 1.0 (09/17/17 6:58 AM) PTT [25.0-35.0 seconds] 28.4 seconds (09/17/17 6:58 AM) Chemistry Most recent to oldest [Reference Range]: 1 Sodium Lvl [136-144 mEq/L] 135 mEq/L *LOW* (09/18/17 4:40 AM) Potassium Lvl [3.6-5.1 mEq/L] 4.5 mEq/L (09/18/17 4:40 AM) Chloride [99-109 mEq/L] 100 mEq/L (09/18/17 4:40 AM) CO2 [22-32 mEq/L] 26 mEq/L (09/18/17 4:40 AM) AGAP [3-20 mEq/L] 9 mEq/L (09/18/17 4:40 AM) BUN [4-20 mg/dL] 23 mg/dL *HI* (09/18/17 4:40 AM) Glucose Lvl [70-100 mg/dL] 240 mg/dL *HI* (09/18/17 4:40 AM) Creatinine Lvl [0.64-1.27 mg/dL] 1.50 mg/dL *HI* (09/18/17 4:40 AM) eGFR [>60 mL/min] 46 mL/min 1 *ABN* (09/18/17 4:40 AM) Calcium Lvl [8.6-10.0 mg/dL] 8.7 mg/dL (09/18/17 4:40 AM) Magnesium Lvl [1.8-2.5 mg/dL] 1.7 mg/dL *LOW* (09/18/17 4:40 AM) Troponin [<0.06 ng/mL] <0.05 ng/mL (09/17/17 4:24 PM) Blood Glucose, Capillary [70-100 mg/dL] 258 mg/dL *HI* (09/18/17 9:39 AM) 1Result Comment: Multiply eGFR results by 1.21 [...] 11/04/11 Recorded 1Result Comment: [06/27/2017] DONE AT [id number] Comment: [01/07/2017] Patient states he had Fall of 2015.3Result Comment: MenCYW-135 liquid conjugate component Lot: [id number] Exp: 07/2018 Procedures Procedure Date Related Diagnosis Body Site Implant Cochlear1 09/17/17 Placement of stent2 08/15/16 Dietitian Consultant 04/11/16 Placement of stent3 12/19/15 Normal colonoscopy4 08/25/15 Diabetic eye exam5 04/11/15 Carotid endarterectomy6 07/26/14 Colonoscopy7, 8 05/06/14 Cholecystectomy9 05/26/12 Repair of incisional trqdki23 05/26/12 Cardiac fjiuiavatwykibw34 02/14/11 Insertion of implantable venous access port12 06/26/10 Qgnlryelm86 2009 Partial colectomy 2010 Cardiac oxzkowrxuynnnrs20 2004 CABG - Coronary artery bypass graft15 1998 Meniscus of knee joint16 Bavnahxrdfilm82 Vasectomy 1auto-populated from documented surgical kjma3Dzjwe hcxngjycc8pzlxx uebqklwjf4Qyrsrjbe history of colon/rectal cancer, repeat in 3 uemsq8ta diabetic retinopathy see scanned xanqrbqn6Cmxbf carotid endarterectomy on July 26, 2014. Dr. Ruff recommended yearly carotid ultrasound to monitor.7No polyps found in [address]Bm of Rectal Ca- 05/01/20109Open cholecystectomy with repair incarcerated incisional lbwvqk38Okvpcdlhnlam incisional hernia repair at the same time as cholecystectomy, done in Ynxnknoycwsz07PC 50% no stents, grafts remain hdczgt64xqvlshx external jugular wihcich was dissected proximally and distally with 3-0 dihr41PS resection for rectal bvtvfs31KAY to RCA patent. SULLIVAN to LAD patent.152 wcmjsr60yrly knee inrhxl96Kpcoogukc cataract surgery, fall Social History Social History Type Response Smoking Status Former smoker; Type: Cigarettes1 entered on: 01/07/17 1smoked for 2 years as a teen.
--- OUTSIDE RECORDS SUMMARY | 2018-02-26 21:36 | External Medical Summary | Referral Summary ---
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 Discharge Diagnosis: Anemia Discharge Diagnosis: Benign essential HTN Discharge Diagnosis: CKD (chronic kidney disease), stage III Discharge Disposition: 01-Home or Self Care Attending Physician: Earl Miller MD Admitting Physician: Earl Miller MD Vital Signs Most recent to oldest [Reference Range]: 1 Temperature Tympanic [36.6-38.1 degC] 36.5 degC *LOW* (08/16/17 10:33 AM) Peripheral Pulse Rate [60-100 bpm] 72 bpm (08/16/17 10:33 AM) Respiratory Rate [14-20 br/min] 16 br/min (08/16/17 10:33 AM) Blood Pressure [90-140/60-90 mmHg] 128/66 mmHg (08/16/17 10:33 AM) SpO2 95 % (08/16/17 10:33 AM) Problem List Condition Effective Dates Status [...] Daily, 0 Refill(s) Start Date: 08/07/17 Status: Orderedcephalexin 250 mg oral tablet 250 mg 1 tabs, Oral, QID, X 5 days, # 20 tabs, 0 Refill(s), Pharmacy: [facility] [id number], 1 tabs Oral QID,x5 days Start Date: 08/16/17 Stop Date: 08/21/17 Status: Orderedfinasteride 5 mg, Oral, Daily, 0 Refill(s) Start Date: 08/07/17 Status: Orderedlisinopril 5 mg, Oral, Daily, 0 Refill(s) Start Date: 08/07/17 Status: OrderedMetoprolol Tartrate 50 mg, Oral, BID, 0 Refill(s) Start Date: 08/07/17 Status: OrderedNitrostat 0.4 mg sublingual tablet 0.4 mg 1 tabs, SubLingual, q5min, as needed for chest pain, # 25 tabs, 11 Refill (s), Pharmacy: [facility], 1 tabs SubLingual q5min,x30 days,PRN:as needed for [...] 11/04/11 Recorded 1Result Comment: [06/27/2017] DONE AT [id number] Comment: [01/07/2017] Patient states he had Fall of 2015.3Result Comment: MenCYW-135 liquid conjugate component Lot: [id number] Exp: 07/2018 Procedures Procedure Date Related Diagnosis Body Site Incision and drainage of abscess (eg, carbuncle, 08/16/17 suppurative hidradenitis, cutaneous or subcutaneous abscess, cyst, furuncle, or paronychia); simple or single Placement of stent1 08/15/16 Blow Torch Burner 04/11/16 Placement of stent2 12/19/15 Normal colonoscopy3 08/25/15 Diabetic eye exam4 04/11/15 Carotid endarterectomy5 07/26/14 Colonoscopy6, 7 05/06/14 Cholecystectomy8 05/26/12 Repair of incisional hernia9 05/26/12 Cardiac lvcrnnnimbiszxc63 02/14/11 Insertion of implantable venous access port11 06/26/10 Xkkhzrlsh02 2009 Partial colectomy 2010 Cardiac rqcwjmyxulhgwxw64 2004 CABG - Coronary artery bypass graft14 1998 Meniscus of knee joint15 Nwerlwzfwzdtf52 Vasectomy 1Stent rffbnwokl4fzijd kduvuhmzd0Eriwpfyp history of colon/rectal cancer, repeat in 3 vbtbf2sf diabetic retinopathy see scanned cbentfjg3Piqkd carotid endarterectomy on July 26, 2014. Dr. Ruff recommended yearly carotid ultrasound to monitor.6No polyps found in [address]Hv of Rectal Ca- 05/01/20108Open cholecystectomy with repair incarcerated incisional wzapgt4Cmtlaqbjmjcy incisional hernia repair at the same time as cholecystectomy, done in Avoffrcxgusk76WF 50% no stents, grafts remain xpkbek34wjldwde external jugular wihcich was dissected proximally and distally with 3-0 ices94ZN resection for rectal hzjkrz72DTB to RCA patent. SULLIVAN to LAD patent.142 jwvqyu76mkaf knee phknhr41Mpccwatad cataract surgery, fall of 2015 Social History Social History Type Response Smoking Status Former smoker; Type: Cigarettes1 entered on: 01/07/17 1smoked for 2 years as a teen. 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 Sebaceous cyst (YFV70-PR L72.3, Discharge, Medical). CKD (chronic kidney disease), stage III (IQG57-BC N18.3, Discharge, Medical). Benign essential HTN (ZNS03-JF I10, Discharge, Medical). Anemia (ERX72-UH D64.9, Discharge, Medical). Orders Orders (Selected) Outpatient Orders Future (On Hold) CBC w/ Differential: Hgb A1c: Hgb A1c: Prescriptions Prescribed cephalexin 250 mg oral tablet: 250 mg=1 tabs, Oral, QID, for 5 days, 20 tabs, 0 Refill(s).
--- OUTSIDE RECORDS SUMMARY | 2018-02-26 21:36 | External Medical Summary | Referral Summary ---
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 Discharge Diagnosis: Leg weakness Discharge Diagnosis: History of colon cancer Discharge Diagnosis: CKD (chronic kidney disease), stage III Discharge Diagnosis: Benign essential HTN Discharge Diagnosis: Coronary artery disease Discharge Disposition: 01-Home or Self Care Attending Physician: Earl Miller MD Admitting Physician: Earl Miller MD Vital Signs Most recent to oldest [Reference Range]: 1 Peripheral Pulse Rate [60-100 bpm] 66 bpm (05/17/17 11:12 AM) Respiratory Rate [14-20 br/min] 18 br/min (05/17/17 11:12 AM) Blood Pressure [90-140/60-90 mmHg] 118/69 mmHg (05/17/17 11:12 AM) Problem List Condition Effective Dates Status [...] Daily, # 60 tabs, 1 Refill(s), Pharmacy: [id number], 2 tabs Oral Daily Start Date: 03/27/17 Status: OrderedALLOPURINOL 100MG TABLETS See Instructions, TAKE 1 TABLET BY MOUTH DAILY, # 30 tabs, 5 Refill(s), eRx: [facility] [id number], TAKE 1 TABLET BY MOUTH DAILY Start Date: 03/01/17 Status: Orderedaspirin 325 mg oral tablet 325 mg 1 tabs, Oral, Daily, 0 Refill(s) Start Date: 12/27/15 Status: Orderedatorvastatin 40 mg oral tablet See Instructions, TAKE 1 TABLET BY MOUTH EVERY DAY, # 90 tabs, eRx: [facility] [id number] Start Date: 04/15/17 Status: OrderedB-D PEN NDL SHRT 08GE0SX(03/19) LUIS F See Instructions, USE TWICE DAILY DIRECTED, # 100 unknown unit, JUAN M, eRx: [facility] [id number], USE TWICE DAILY DIRECTED Start Date: 08/12/14 [...] 250.02, # 100 Each, 0 Refill(s), Pharmacy: [facility] 31427, Check blood sugar fasting and 2hours after meals. DX 250.02 Start Date: 06/16/14 Status: Orderedfinasteride 5 mg oral tablet See Instructions, TAKE 1 TABLET BY MOUTH EVERY DAY, # 90 tabs, 1 Refill(s), eRx : [email or web address] [address], TAKE 1 TABLET BY MOUTH EVERY DAY Start Date: 03/14/17 Status: OrderedGlucometer Lancets (DME) DME Item check blood sugar fasting and 2 hours after meals DX 250.02, See Instructions, # 100 Each,0 Refill(s), Pharmacy: [email or web address] [address], check blood sugar fasting and 2 hours [...] DAILY, # 180 tabs, 1 Refill(s), eRx: [email or web address] [address]691, TAKE 1 TABLET BY MOUTH TWICE DAILY Start Date: 03/01/17 Status: OrderedMobic 15 mg oral tablet 15 mg 1 tabs, Oral, Daily, # 14 tabs, 0 Refill(s), Pharmacy: [email or web address], 1 tabs OralDaily Start Date: 03/14/17 Status: OrderedNitrostat 0.4 mg sublingual tablet 0.4 mg 1 tabs, SubLingual, q5min, as needed for chest pain, # 25 tabs, 11 Refill (s), Pharmacy: [facility], 1 tabs SubLingual q5min,x30 days,PRN:as needed for chest pain Start Date: 10/03/15 Stop Date: 09/27/16 Status: OrderedNovoLOG Mix 70/30 FlexPen subcutaneous suspension See Instructions, INJECT 38 UNITS EVERY MORNING AND 38 UNITS AT SUPPER DX E11.43 , # 6 boxes, 3 Refill(s), JUAN M, Pharmacy: [email or web address] [address] Start Date: 10/09/16 Status: OrderedOstemy supplies Ostemy supplies, See Instructions, DX: 153.9 Fax to [facility] [phone] , # 100 Each, 2 Refill(s) Start [...] FOR URINARY RETENTION, # 110 caps, eRx: [facility]98, TAKE 1 CAPSULE BY MOUTH ONCE DAILY [...] oldest [Reference Range]: 1 WBC [4.8-10.8 10*3/uL] 7.5 10*3/uL (05/17/17 12:04 PM) RBC [4.60-6.20] 4.16 *LOW* (05/17/17 12:04 PM) Hgb [14.0-18.0 gm/dL] 12.3 gm/dL *LOW* (05/17/17 12:04 PM) Hct [42.0-52.0 %] 37.8 % *LOW* (05/17/17 12:04 PM) MCV [82.0-99.0 fL] 90.9 fL (05/17/17 12:04 PM) MCH [27.0-32.0 pg] 29.6 pg (05/17/17 12:04 PM) MCHC [32.0-36.0 gm/dL] 32.5 gm/dL (05/17/17 12:04 PM) RDW [11.5-14.5 %] 13.9 % (05/17/17 12:04 PM) Platelet [150-400 10*3/uL] 128 10*3/uL *LOW* (05/17/17 12:04 PM) MPV [8.8-14.8 fL] 11.3 fL (05/17/17 12:04 PM) Immature Granulocytes [0.0-1.0 %] 0.0 % (05/17/17 12:04 PM) Neutrophils [51-75 %] 71 % (05/17/17 12:04 PM) Lymphocytes [20-46 %] 18 % *LOW* (05/17/17 12:04 PM) Monocytes [4-11 %] 8 % (05/17/17 12:04 PM) Eosinophils [0-4 %] 3 % (05/17/17 12:04 PM) Basophils [0-2 %] 0 % (05/17/17 12:04 PM) Neutro Absolute [1.90-7.00] 5.33 (05/17/17 12:04 PM) Lymph Absolute [0.80-3.30] 1.32 (05/17/17 12:04 PM) [place] Absolute [0.30-1.00] 0.60 (05/17/17 12:04 PM) Eos Absolute [0.00-0.50] 0.20 (05/17/17 12:04 PM) Baso Absolute [0.00-0.20] 0.02 (05/17/17 12:04 PM) Sed Rate [0-15] 59 *HI* (05/17/17 12:04 PM) Chemistry Most recent to oldest [Reference Range]: 1 Total CK [30-200 U/L] 83 U/L (05/17/17 12:04 PM) Immunizations Given and Recorded Vaccine Date Status Refusal Reason influenza virus vaccine, inactivated1 11/04/15 Recorded influenza virus vaccine, inactivated 08/04/15 Recorded influenza virus vaccine, inactivated 08/06/14 Recorded pneumococcal 13-valent conjugate vaccine 08/04/15 Recorded pneumococcal 23-polyvalent vaccine 08/06/14 Given tetanus/diphtheria/pertussis, acel(Tdap) 11/04/11 Recorded 1Result Comment: [01/07/2017] Patient states he had Fall of 2015. Procedures Procedure Date Related Diagnosis Body Site Placement of stent1 08/15/16 Tenoner Operator 04/11/16 Placement of stent2 12/19/15 Normal colonoscopy3 08/25/15 Diabetic eye exam4 04/11/15 Carotid endarterectomy5 07/26/14 Colonoscopy6, 7 05/06/14 Cholecystectomy8 05/26/12 Repair of incisional hernia9 05/26/12 Cardiac vsobspqisuhvuwt28 02/14/11 Insertion of implantable venous access port11 06/26/10 Acsmtizez45 2009 Partial colectomy 2009 Cardiac wajlpbnvlqipimz63 2004 CABG - Coronary artery bypass graft14 1998 Knee replacement Rgkgghamknrao92 Vasectomy 1Stent lnoeigdqu6wbcqm lqgfumwjm2Trhbgvxs history of colon/rectal cancer, repeat in 3 offlf5mh diabetic retinopathy see scanned ahirqlnv7Pikue carotid endarterectomy on July 26, 2014. Dr. Ruff recommended yearly carotid ultrasound to monitor.6No polyps found in 49984Ss of Rectal Ca- 05/01/20108Open cholecystectomy with repair incarcerated incisional glqdju9Tsbvbcyozcta incisional hernia repair at the same time as cholecystectomy, done in [place]85[place] 50% no stents, grafts remain keimop31gmzcjks external jugular wihcich was dissected proximally and distally with 3-0 uwco37KH resection for rectal timaee21DXA to RCA patent. SULLIVAN to LAD patent.142 gctiwt51Qnkxorejb cataract surgery, fall Social History Social History Type Response Smoking Status Former smoker; Type: Cigarettes1 1smoked for 2 years as a teen. Assessment and Plan Extracted from: Title: 3 Month CDM DM Author: Earl Miller MD Date: 05/17/17 Impression and Plan Diagnosis Benign essential HTN ([id number] I10, Discharge, Medical). CKD (chronic kidney disease), stage III (EEZ99-HH N18.3, Discharge, Medical). Coronary artery disease (UXS19-FU I25.10, Discharge, Medical). History of colon cancer (ECG29-ZT Z85.038, Discharge, Medical). Leg weakness (LBP21-YM R29.898, Discharge, Medical). 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 Orders Orders (Selected) Outpatient Orders Future (On Hold) CBC w/ Differential: CPK: ESR: .
--- OUTSIDE RECORDS SUMMARY | 2018-02-26 21:36 | External Medical Summary | Referral Summary ---
:1945 Author Organization [facility] [place] [address] Care Team Providers Name Role Phone Italotami Earl Barragan Primary Care Physician Encounter VC Date(s): 03/14/17 - 03/14/17 [facility] [address] [place] [phone] [place] Discharge Disposition: 01-Home or Self Care Attending Physician: Tania Negro APRN Admitting Physician: Tania Negro APRN Vital Signs Most recent to oldest [Reference Range]: 1 Temperature Tympanic [36.6-38.1 degC] 36.9 degC (03/14/17 1:33 PM) Peripheral Pulse Rate [60-100 bpm] 69 bpm (03/14/17 1:33 PM) Blood Pressure [90-140/60-90 mmHg] 130/70 mmHg (03/14/17 1:33 PM) SpO2 97 % (03/14/17 1:33 PM) Problem List Condition Effective Dates [...] tablet 100 mg 1 tabs, Oral, Daily, 2 tablets equals 200 mg daily, # 30 tabs, 6 Refill(s ), Pharmacy: [facility] [id number] Start Date: 07/30/16 Status: OrderedALLOPURINOL 100MG TABLETS See Instructions, TAKE 1 TABLET BY MOUTH DAILY, # 30 tabs, 5 Refill(s), eRx: [facility] [id number], TAKE 1 TABLET BY MOUTH DAILY Start Date: 03/01/17 Status: Orderedaspirin 325 mg oral tablet 325 mg 1 tabs, Oral, Daily, 0 Refill(s) Start Date: 12/27/15 Status: Orderedatorvastatin 40 mg oral tablet See Instructions, TAKE 1 TABLET BY MOUTH EVERY DAY, # 90 tabs, eRx: [facility] 21917, TAKE1 TABLET BY MOUTH EVERY DAY Start Date: 01/08/17 Status: OrderedB-D PEN NDL SHRT [id number](03/19) LUIS F See Instructions, USE TWICE DAILY DIRECTED, # 100 unknown unit, JUAN M, eRx: [facility] [id number], USE TWICE DAILY DIRECTED Start Date: 08/12/14 [...] 250.02, # 100 Each, 0 Refill(s), Pharmacy: [facility], Check blood sugar fasting and 2hours after meals. DX 250.02 Start Date: 06/16/14 Status: Orderedfinasteride 5 mg oral tablet See Instructions, TAKE 1 TABLET BY MOUTH EVERY DAY, # 90 tabs, 1 Refill(s), eRx : [facility] [address], TAKE 1 TABLET BY MOUTH EVERY DAY Start Date: 03/14/17 Status: OrderedGlucometer Lancets (DME) DME Item check blood sugar fasting and 2 hours after meals DX 250.02, See Instructions, # 100 Each,0 Refill(s), Pharmacy: [facility], check blood sugar fasting and 2 hours after mealsDX 250.02, Supply Start Date: 06/16/14 Status: Orderedmeclizine 25 mg oral tablet 25 mg 1 tabs, Oral, TID, as needed for dizziness, 0 Refill(s) Start Date: 12/27/15 Status: OrderedMetoprolol Tartrate 50 mg oral tablet See Instructions, TAKE 1 TABLET BY MOUTH TWICE DAILY, # 180 tabs, 1 Refill(s), eRx: [facility], TAKE 1 TABLET BY MOUTH TWICE DAILY Start Date: 03/01/17 Status: OrderedMobic 15 mg oral tablet 15 mg 1 tabs, Oral, Daily, # 14 tabs, 0 Refill(s), Pharmacy: [facility], 1 tabs OralDaily Start Date: 03/14/17 Status: OrderedNitrostat 0.4 mg sublingual tablet 0.4 mg 1 tabs, SubLingual, q5min, as needed for chest pain, # 25 tabs, 11 Refill (s), Pharmacy: [facility], 1 tabs SubLingual q5min,x30 days,PRN:as needed for chest pain Start Date: 10/03/15 Stop Date: 09/27/16 Status: OrderedNovoLOG Mix 70/30 FlexPen subcutaneous suspension See Instructions, INJECT 38 UNITS EVERY MORNING AND 38 UNITS AT SUPPER DX E11.43 , # 6 boxes, 3 Refill(s), JUAN M, Pharmacy: [facility] [address] Start Date: 10/09/16 Status: OrderedOstemy supplies Ostem[employer] supplies, See Instructions, DX: 153.9 Fax to [facility] [phone] , # 100 Each, 2 Refill(s) Start [...] retention, # 90 caps, 1 Refill(s), Pharmacy: [facility] , 1 caps Oral Daily,x90 days,Instr:May take a second dose in the day as needed for urinary reten... Start Date: 07/10/16 Stop Date: 01/06/17 Status: OrderedVitamin B12 2,500 mcg, Daily, 0 Refill(s) Start Date: 01/07/17 Status: OrderedVitamin C 1,000 mg, Daily, 0 Refill(s) Start Date: 01/07/17 Status: Orderedvitamin E 1,000 Intl_Units, Oral, Daily, 0 Refill(s) Start Date: 01/07/17 Status: Ordered Results No data available for this section Immunizations Given and Recorded Vaccine Date Status Refusal Reason influenza virus vaccine, inactivated1 11/04/15 Recorded influenza virus vaccine, inactivated 08/04/15 Recorded influenza virus vaccine, inactivated 08/06/14 Recorded pneumococcal 13-valent conjugate vaccine 08/04/15 Recorded pneumococcal 23-polyvalent vaccine 08/06/14 Given tetanus/diphtheria/pertussis, acel(Tdap) 11/04/11 Recorded 1Result Comment: [01/07/2017] Patient states he had Fall 2015. Procedures Procedure Date Related Diagnosis Body Site Placement of stent1 08/15/16 As400 Consultant 04/11/16 Placement of stent2 12/19/15 Normal colonoscopy3 08/25/15 Diabetic eye exam4 04/11/15 Carotid endarterectomy5 07/26/14 Colonoscopy6, 7 05/06/14 Cholecystectomy8 05/26/12 Repair of incisional hernia9 05/26/12 Cardiac ymlszgdqfdshxbb13 02/14/11 Insertion of implantable venous access port11 06/26/10 Pmyzbokjw77 2009 Partial colectomy 2010 Cardiac xqlpdncbwalmprv67 2004 CABG - Coronary artery bypass graft14 1998 Knee replacement Ztsbxczckwvcf69 Vasectomy 1Stent mrqqbmcra2zhkez lfafvnwrl8Rmtmokpf history of colon/rectal cancer, repeat in 3 nvdkp3gh diabetic retinopathy see scanned yfnwvwue9Zfblp carotid endarterectomy on July 26, 2014. Dr. Ruff recommended yearly carotid ultrasound to monitor.6No polyps found in [address]Af of Rectal Ca- 05/01/20108Open cholecystectomy with repair incarcerated incisional nwhpzv5Ixrlzthrtdcb incisional hernia repair at the same time as cholecystectomy, done in [place]vb[place]85[place] 50% no stents, grafts remain slojrb09icjfbjr external jugular wihcich was dissected proximally and distally with 3-0 jwoj85MJ resection for rectal gcqnie12VUG to RCA patent. SULLIVAN to LAD patent.142 zybwqy50Garnxhdon cataract surgery, fall of 2015 Social History Social History Type Response Smoking Status Former smoker; Type: Cigarettes1 1smoked for 2 years as a teen. Assessment and Plan Extracted from: Title: Office Visit Note Author: Tania Negro APRN Date: 03/14/17 Assessment/Plan Left hand pain X-ray obtained of the left hand. There is soft tissue swellingbut no fracture noted at the baseof the middlefinger. Recommended continued icing and elevation. Prescription for meloxica m 15 mg to use as sparingly as possible for pain. He does not want anything stronger for pain. Is to use it cautiously because of his chronic kidney disease. Return if there is any worsening of the pain or swelling in the next 48 hours Ordered: Office Visit Level 3 Est 99103 XR Hand Complete Left
[2018-02-26] MEDS ORDERED: SALINE FLUSH 10ml SYRINGE IVF PRN (21:41)
[2018-02-26] MEDS ORDERED: NITROGLYCERIN 0.4 MG SUBLINGUAL TABLET SL PRN (21:42)
[2018-02-26] MEDS ORDERED: ASPIRIN 81 MG CHEWABLE TABLET PO ONE (21:42)
--- NOTE | 2018-02-26 21:45 | Emergency Department Report ---
Cardiac General HPI - General Chief Complaint: Shortness of Breath/Dyspnea Stated Complaint: heavy breathing fast heart rate Time Seen by Provider: 02/26/18 21:29 Source: patient Mode of arrival: ambulatory Limitations: no limitations - History of Present Illness HPI narrative: Patient is a 72-year-old male who presents to the emergency room for chest pain and shortness of breath. He states he was sitting at home watching TV and at 8: 30 PM he suddenly had shortness of breath, chest pain, and felt flushed. He states this is the same feeling he had approximately 20 years ago before he ended up having CABG. States he recently had an abnormal stress test and is scheduled for heart catheterization March 18. He was told if he has any symptoms, he should report immediately to the ER. He took nitroglycerin at home and symptoms improved. On arrival to the ER, his shortness of breath has improved, but he states his breathing is still not normal. He describes a sharp, stabbing pain to his left chest, but states overall he feels like he has an "elephant sitting on my chest." He has been having increased symptoms of shortness of breath and weakness with exertion. This prompted him to follow-up with cardiology and, in turn, prompted his recent cardiac testing. - Related Data Home Medications Medication Instructions Recorded Confirmed Atorvastatin Calcium 40 mg PO HS #0 06/16/14 02/26/18 Finasteride 5 mg PO HS #0 06/28/14 02/26/18 Novolog Mix 70/30 Sq [Novolog Mix 36 unit SQ WB #0 06/28/14 02/26/18 70-30] Novolog Mix 70/30 Sq [Novolog Mix 36 unit SQ WS #0 06/28/14 02/26/18 70-30] Metoprolol Tartrate 50 mg PO BID #0 08/24/15 02/26/18 Tamsulosin HCl 0.4 mg PO DAILY #0 08/24/15 02/26/18 Nitroglycerin [Nitrostat] 0.4 mg SL PRN PRN #0 tab 09/25/15 02/26/18 Aspirin 325 mg PO DAILY #0 tab 02/06/16 02/26/18 Clopidogrel Bisulfate [Plavix] 1 tab PO DAILY #0 tab 02/06/16 02/26/18 Meclizine HCl 25 mg PO Q8H PRN #0 tab 02/07/16 02/26/18 Thiamine HCl (Vitamin B-1) 1 tab PO DAILY #0 07/24/16 02/26/18 Allopurinol 2 tab PO HS #0 tab 08/14/16 02/26/18 VITAMIN E 250 unit PO DAILY #0 08/14/16 02/26/18 Cholecalciferol (Vitamin D3) 1 cap PO DAILY #0 08/15/16 02/26/18 (Vitamin D) Lisinopril [Prinivil] 10 mg PO DAILY 02/26/18 02/26/18 Allergies Allergy/AdvReac Type Severity Reaction Status Date / Time acetaminophen Allergy Unknown HIVES Verified 02/26/18 22:20 Iodinated Contrast- Oral and Allergy Unknown HIVES Verified 02/26/18 22:20 IV Dye shellfish derived Allergy Unknown HIVES Verified 02/26/18 22:20 isosorbide AdvReac Unknown DIZZINESS Verified 02/26/18 22:20 Review of Systems All systems: reviewed and negative except as stated (chest pain, shortness of breath) PFS Patient Stated Medical History Diabetes Mellitus Type 2 Yes Hx Urinary Tract Infection Yes Medical History Updates: Coronary artery disease, hyperlipidemia, hypertension, DM type II-insulin therapy, urinary hesitancy Surgical History: CABG 2 (1998), cholecystectomy, hernia repair, colon cancer with colostomy, cochlear implants, cardiac stent x 3 Family History: Follow- of tetanus when patient was 3 years old Mother-coronary artery disease, CABG in her 70s - Social History Smoking status: Never smoker Substance use type: does not use Alcohol intake frequency: does not drink Household members: other (lives with his ex-) Current occupational status: retired Current residence: Apartment/Private Home 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 Physical Exam - Limitations Limitations: no limitations - General General appearance: in no apparent distress - Normal Exams: Head:: Normocephalic without trauma Eyes:: Pupils are PERRLA w/ EOMI Neck:: Full range of motion, without adenopathy Chest/Respirations:: Clear all verduzco Cardiovascular:: Regular rate and rhythm, capillary refill Abdomen:: soft, non-tender, non-distended Integumentary:: No rashes Neurological:: Patient is alert, and oriented, exams w/o gross deficits Psychiatric:: Patient exhibits, appropriate attention - Chest Chest inspection: Present: tenderness (to palpation over the left chest) Course Vital Signs Temperature 98.0 F 02/26/18 21:17 Pulse Rate 66 02/26/18 21:17 Respiratory Rate 22 02/26/18 21:17 Blood Pressure 215/95 H 02/26/18 21:17 Pulse Oximetry 99 02/26/18 21:17 Temperature 98.0 F 02/26/18 21:17 Pulse Rate 58 L 02/26/18 23:30 Respiratory Rate 18 02/26/18 23:30 Blood Pressure 173/79 H 02/26/18 23:30 Pulse Oximetry 97 02/26/18 23:30 Cardiac General - MDM Narrative Medical decision making narrative: Suspect cardiac chest pain given patient's history and presentation. EKG showed less than [address] depression in the inferior leads, unchanged from previous EKG in 2016. Chest x-ray essentially negative. Labs negative exception of slightly elevated BNP. Patient achieved 324 mg of aspirin on arrival. Patient was given nitroglycerin in the ER when his pain returned, and pain completely resolved with nitroglycerin. Nitropaste was applied as well. His blood pressure was elevated on arrival. Following administration of nitroglycerin, he had a drop in his blood pressure. Guillermina Roland APRN with Dr. Moy was contacted and accepted patient for admission for observation to rule out [place]. Patient wishes to be a full code. Admission orders per cardiology. - Lab Data Result diagrams: 02/26/18 21:54 02/26/18 21:54 Lab Results 02/26/18 02/26/18 Range/Units 21:54 21:54 WBC 6.6 (4.5-11.0) T/MM3 RBC 3.78 L (4.50-5.90) M/MM3 Hgb 11.6 L (13.5-17.5) GM/DL Hct 34.9 L (41-53) % MCV 92.3 (80-100) UM3 MCH 30.7 (26-34) UUG MCHC 33.2 (31-37) GM/DL RDW Std Deviation 46.4 (36.9-50.2) FL Plt Count 113 L (130-400) T/MM3 MPV 10.5 (9.4-12.4) UM3 Immature Gran % (Auto) 0.2 (0.0-0.5) % Neut % (Auto) 63.9 (33-66) % Lymph % (Auto) 25.1 (23-45) % Wirt % (Auto) 8.2 (0-9.0) % Eos % (Auto) 2.4 (0-4) % Baso % (Auto) 0.2 (0-2) % Neut # (Auto) 4.2 (1.8-7.7) T/MM3 Lymph # (Auto) 1.7 (1-4.8) T/MM3 Wirt # (Auto) 0.5 (0-0.8) T/MM3 Eos # (Auto) 0.2 (0-0.5) T/MM3 Baso # (Auto) 0.0 (0-0.2) T/MM3 Abs Immat Gran (auto) 0.01 (0.00-0.03) T/MM3 Turbidity < 20 (0-20) Sodium 144 (134-144) MEQ/L Potassium 4.4 (3.6-5) MEQ/L Chloride 104 (98-107) MEQ/L Carbon Dioxide 27 (22-30) MEQ/L Anion Gap 13 (5-15) meq/L BUN 21.0 H (9-20) MG/DL Creatinine 1.3 (0.8-1.5) mg/dL GFR Calculation 54 BUN/Creatinine Ratio 16 (6-26) RATIO Glucose 172 H (75-110) MG/DL Calculated Osmolality 284 H (261-280) MOSM/KG Calcium 9.2 (8.4-10.2) MG/DL Total Bilirubin 0.40 (0.20-1.30) MG/DL Icterus Index < 2 (0-7) AST 32 (17-59) U/L ALT 35 (1-50) U/L Alkaline Phosphatase 115 (38-126) U/L Troponin I < 0.012 (0-0.12) ng/ml NT-Pro-B Natriuret Pep 288 H (0-175) pg/mL Total Protein 7.1 (6.3-8.2) g/dL Albumin 4.2 (3.5-5.0) g/dL Globulin 2.9 (2.4-3.6) G/DL Albumin/Globulin Ratio 1.4 (1.1-2.2) RATIO Specimen Hemolysis < 15 (0-25) Disposition Clinical Impression: CHEST PAIN Disposition: 02 To [facility] [place] Care Condition: Stable Time of Disposition: 22:40 - Seen By: midlevel
[2018-02-26] MEDS ORDERED: NITROGLYCERIN 2% OINTMENT 1gm PACKET TP ONE (22:12)
[2018-02-26 23:59] VITALS: BMI 30.4
[2018-02-27] MEDS ORDERED: ONDANSETRON 4 MG/2 ML INJECTION IVP PRN ×2 (00:45→15:37)
--- NOTE | 2018-02-27 08:19 | XRay Report ---
Indication: chst pain, soa PROCEDURE: XR chest 1V: Encounter: Initial Comparison: January 01, 2018 FINDINGS: The lungs are clear. There is no abnormal airspace opacity, pleural effusion or pneumothorax identified. The heart size, pulmonary vasculature and mediastinum are stable. Poststernotomy changes. IMPRESSION: No acute cardiopulmonary abnormality. .
[2018-02-27] MEDS ORDERED: NS 1,000 ML IV SCH (10:15)
--- NOTE | 2018-02-27 10:17 | Cardiology History & Physical ---
History of Present Illness Chief complaint: chest pain HPI: Dragan is a 72 year old male who is known to Dr. Moy's practice with a history of CAD with CABG X2 in 99, SOA, Carotid stenosis, HTN, HLD, DM type II and recently had an abnormal stress test which showed moderate LAD ischemia. He was seen in clinic by Dr. Mina on and scheduled for heart catheterization March 18. He was given Isosorbide on a previous visit and had mental status changes as an adverse reaction. Yesterday he presented to the ED for chest pain and shortness of breath. He states he was sitting at home watching TV and at 8:30 PM he suddenly had shortness of breath, chest pain, felt flushed, had nausea and dizziness. He reportedly had similar symptoms he had approximately 20 years ago before he ended up having CABG. He was told if he has any symptoms, he should report immediately to the ED. He took nitroglycerin at home and symptoms improved. He described a sharp, stabbing pain to his left chest, but stated overall he feels like he has an "elephant sitting on my chest." He has been having increased symptoms of shortness of breath and weakness with exertion. This prompted him to follow-up with cardiology and, in turn, prompted his recent cardiac testing. He is admitted to observation in the care of Dr. Moy for further evaluation and Left heart cath later today. Review of Systems - Constitutional Constitutional: Absent: chills, fever(s) - EENMT Eyes: Absent: blurry vision, change in vision Balance: Absent: vertigo Mouth/Throat: Absent: sore throat - Cardiovascular Cardiovascular: Present: chest pain, dyspnea on exertion. Absent: palpitations Vascular: Absent: pedal edema - Respiratory Respiratory: Present: dyspnea, dyspnea on exertion. Absent: cough - Gastrointestinal Gastrointestinal: Present: nausea. Absent: abdominal pain, diarrhea, vomiting - Genitourinary Genitourinary: Absent: dysuria - Integumentary/Breasts Integumentary: Absent: rash - Neurological Neurological: Present: dizziness - Endocrine Endocrine: Present: flushing. Absent: palpitations PFSH Patient Stated Medical History Hypertension Yes Diabetes Mellitus Type 2 Yes Hx Urinary Tract Infection Yes Medical History Updates: Coronary artery disease, hyperlipidemia, hypertension, DM type II-insulin therapy, urinary hesitancy Surgical History: CABG 2 (1998), cholecystectomy, hernia repair, colon cancer with colostomy, cochlear implants, cardiac stent x 3 Family History: Father - of tetanus when patient was 3 years old Mother -coronary artery disease, CABG in her 70s Brother - younger, of [place] - Social History Smoking status: Never smoker Substance use type: does not use Alcohol intake frequency: does not drink Household members: other (lives with his ex-) Current occupational status: retired Current residence: Apartment/Private Home Medications Home Medications Medication Instructions Recorded Confirmed Type Atorvastatin Calcium 40 mg PO HS #0 06/16/14 02/26/18 History Finasteride 5 mg PO HS #0 06/28/14 02/26/18 History Novolog Mix 70/30 Sq [Novolog Mix 36 unit SQ WB #0 06/28/14 02/26/18 History 70-30] Novolog Mix 70/30 Sq [Novolog Mix 36 unit SQ WS #0 06/28/14 02/26/18 History 70-30] Metoprolol Tartrate 50 mg PO BID #0 08/24/15 02/26/18 History Tamsulosin HCl 0.4 mg PO DAILY #0 08/24/15 02/26/18 History Nitroglycerin [Nitrostat] 0.4 mg SL PRN PRN #0 tab 09/25/15 02/26/18 History Aspirin 325 mg PO DAILY #0 tab 02/06/16 02/26/18 History Clopidogrel Bisulfate [Plavix] 1 tab PO DAILY #0 tab 02/06/16 02/26/18 History Meclizine HCl 25 mg PO Q8H PRN #0 tab 02/07/16 02/26/18 History Thiamine HCl (Vitamin B-1) 1 tab PO DAILY #0 07/24/16 02/26/18 History Allopurinol 2 tab PO HS #0 tab 08/14/16 02/26/18 History VITAMIN E 250 unit PO DAILY #0 08/14/16 02/26/18 History Cholecalciferol (Vitamin D3) 1 cap PO DAILY #0 08/15/16 02/26/18 History (Vitamin D) Lisinopril [Prinivil] 10 mg PO DAILY 02/26/18 02/26/18 History Allergies Allergy/AdvReac Type Severity Reaction Status Date / Time acetaminophen Allergy Unknown HIVES Verified 02/26/18 22:20 Iodinated Contrast- Oral and Allergy Unknown HIVES Verified 02/26/18 22:20 IV Dye shellfish derived Allergy Unknown HIVES Verified 02/26/18 22:20 isosorbide AdvReac Unknown DIZZINESS Verified 02/26/18 22:20 Exam Vital signs: Temperature 98.0 F 02/26/18 21:17 Pulse Rate 76 02/27/18 08:00 Respiratory Rate 15 02/27/18 03:06 Blood Pressure 179/72 H 02/27/18 01:11 Pulse Oximetry 96 02/27/18 03:06 - Constitutional no acute distress, well nourished, cooperative - Routine HEENT Exam Head: Present: normocephalic ENT: Present: mucous membranes moist - Routine Neck Exam Absent: JVD, carotid bruit - Routine Chest/Breast/Axilla Exam Chest wall: Absent: tenderness - Routine Respiratory Exam Present: CTA bilaterally. Absent: rales, wheezes - Routine Cardiovascular Exam Present: RRR, no murmur - Routine Abdominal Exam Present: soft, non tender - Routine Extremities Exam Present: no edema - Routine Skin Exam Present: intact, dry, warm - Routine Neurological Exam Present: alert, oriented X3 - Routine Psychiatric Exam Present: normal affect, normal thought process Results 02/28/18 04:32 02/28/18 04:32 Cardiac Enzymes 02/27/18 Range/Units 04:19 Troponin I < 0.012 (0-0.12) ng/ml Intake and Output 02/26/18 02/27/18 02/27/18 22:59 06:59 14:59 Output Total 125 / 125 Balance -125 / -125 Output: Urine 125 / 125 Other: # Voids 1 Weight 212 lb 1.355 oz 212 lb 1.355 oz Patient Weight 02/28/18 06:59 Weight 212 lb 1.355 oz - Imaging and Cardiology Imaging & Cardiology Narrative: Date of Exam: 02/26/18 Ordering Provider: Farida Langley Type of Exam(s): XR chest 1V Reason for Exam(s): chst pain, soa Indication: chst pain, soa PROCEDURE: XR chest 1V: Encounter: Initial Comparison: January 01, 2018 FINDINGS: The lungs are clear. There is no abnormal airspace opacity, pleural effusion or pneumothorax identified. The heart size, pulmonary vasculature and mediastinum are stable. Poststernotomy changes. IMPRESSION: No acute cardiopulmonary abnormality. 02/27/18 10:31 EKG interpretations - EKG EKG results cardiology: sinus rhythm Hospital Course This is a general summary of the patient's hospital course. For more details refer to the complete medical record. Time spent with patient: 25 - 35 minutes Resuscitation Status: Full Code Assessment and Plan - Attestation Attestation Narrative: 02/28/18 14:46 Recommendation After examining the patient I agree with the above assessment. I am involved in the formulation of the patient's plan of care. - Assessment and Plan (1) Precordial chest pain Status: Acute Reports chest pain, associated with SOA, dizziness, flushing and nausea - relieved eventually by nitro paste - Unable to tolerate Imdur - Recent abnormal stress test which showed moderate LAD ischemia. - NPO for C later today - Continue Aspirin, Plavix, BB, ROSA and Statin (2) Abnormal findings on diagnostic imaging of heart and coronary circulation Status: Acute - abnormal stress test which showed moderate LAD ischemia - Originally scheduled for heart catheterization March 18. (3) Shortness of breath Status: Chronic (4) Atherosclerosis of coronary artery bypass graft without angina pectoris Status: Chronic (5) Occlusion and stenosis of bilateral carotid arteries Status: Chronic (6) Essential (primary) hypertension Status: Chronic Started on Amlodipine 2.5mg on 02/20/[address] 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 (7) Mixed hyperlipidemia Status: Chronic Takes Atorvastatin, PCP manages (8) Type 2 diabetes mellitus without complications Status: Chronic PCP manages - Assessment and Plan CP: Reports chest pain, associated with SOA, dizziness, flushing and nausea - relieved eventually by nitro paste - Unable to tolerate Imdur - Recent abnormal stress test which showed moderate LAD ischemia. - NPO for LHC later today - Continue Aspirin, Plavix, BB, ROSA and Statin Abnormal findings on diagnostic imaging of heart and coronary circulation - abnormal stress test which showed moderate LAD ischemia - Originally scheduled for heart catheterization March 18. Shortness of breath - LHC today Atherosclerosis of coronary artery bypass graft without angina pectoris Occlusion and stenosis of bilateral carotid arteries Essential (primary) hypertension - Started on Amlodipine 2.5mg on 02/20/[address] 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 Mixed hyperlipidemia - Takes Atorvastatin, PCP manages Type 2 diabetes mellitus without complications - PCP manages
[2018-02-27] MEDS ORDERED: MECLIZINE 25 MG TABLET PO PRN (10:42)
[2018-02-27] MEDS ORDERED: HEPARIN 1,000 UNITS/500 ML PREMIX (*CVL ONLY*) IV ONE (11:18)
[2018-02-27] MEDS ORDERED: LIDOCAINE 1% (10mg/ml) 30ml SDV INJ ONE (11:19)
[2018-02-27] MEDS: --POM--ASPIRIN 325 MG TABLET PO SCH (12:20)
[2018-02-27] MEDS: --POM--METOPROLOL TARTRATE 50mg TABLET PO SCH ×2 (12:21→18:03)
[2018-02-27] MEDS: --POM--CLOPIDOGREL 75 MG TABLET PO SCH (12:22)
[2018-02-27] MEDS ORDERED: MIDAZOLAM 2mg/2ml INJECTION ONE (13:37)
[2018-02-27] MEDS ORDERED: FentaNYL 250 MCG/5 ML INJECTION ONE (13:38)
[2018-02-27] MEDS ORDERED: DiphenhydrAMINE 50 MG/ML INJECTION ONE (13:56)
[2018-02-27] MEDS ORDERED: METHYLPREDNISOLONE SOD SUCC 125mg/2ml INJECTION ONE (13:56)
[2018-02-27] MEDS ORDERED: HEPARIN 1,000unit/ml INJECTION 10ml ONE (14:21)
--- NOTE | 2018-02-27 14:59 | Cardiac Catheterization Report ---
DATE OF PROCEDURE February 27, [address] Earl Miller The patient is a pleasant 72-year-old gentleman with coronary artery disease and coronary artery bypass graft who was been having recurrence of the angina and was admitted with unstable angina with recent abnormal stress test. He was referred for further evaluation by cardiac catheterization and possible intervention. Informed consent was obtained after explaining the procedure and the potential risks to the patient who agreed to proceed with the procedure. PROCEDURE 1. Left heart catheterization. 2. Coronary angiography. 3. Left ventriculography. 4. Bypass angiography. 5. Selective SULLIVAN angiography. 6. Primary stent of the vein graft to RCA using a 2.75 x 8 mm drug-eluting Resolute [place] stent. 7. Right femoral angiography to visualize the vessel for closure device. 8. Successful Mynx deployment for hemostasis. TECHNIQUE He was prepped and draped in the usual sterile techniques. Conscious sedation was performed using Versed and fentanyl. 1% lidocaine was used for local anesthesia. Using modified Seldinger technique, arterial access was obtained into the right femoral artery with placement of a 6-[place] arterial sheath. 7000 units of heparin was administered for anticoagulation prior to intervention. LEFT VENTRICULOGRAPHY Left ventriculography in single-plane MCCULLOUGH shallow projection showed normal LV systolic function with ejection fraction of about 65% with no mitral regurgitation or gradient across the aortic valve. LVEDP was 8. CORONARY ANGIOGRAPHY Left main had distal 80% stenosis. Left anterior descending artery was occluded at the ostium. Left circumflex artery was small with diffuse disease of up to about 60-70%. The ramus intermedius had about 80% stenosis and it was a small caliber vessel. Right coronary artery was occluded. SULLVIAN to LAD was patent with excellent flow. Collaterals were noted going from LAD to acute marginal branch. A vein graft to RCA had diffuse irregularities of up to about 20-30%. Distal graft at the anastomosis had about 80-90% stenosis. PDA and posterolateral arteries had diffuse disease of up to about 40%. After reviewing the images we decided to proceed with intervention on vein graft to RCA. A 6-Palauan multipurpose guide was advanced to the ostium of the graft. A Runthrough wire was used to cross the lesion into distal posterolateral artery. A 2.75 x 8 mm drug-eluting Resolute [place] stent was delivered to the lesion site where it was deployed by inflating the balloon to 14 atmospheres. Next, angiogram showed excellent results with no residual stenosis. Right femoral angiography showed patent common femoral, proximal SFA and profunda and therefore Mynx was used for hemostasis. IMPRESSION 1. Normal LV systolic function with ejection fraction of about 65%. 2. Coronary artery disease as described above. 3. Successful primary stent of vein graft to RCA using a 2.75 x 8 mm drug- eluting Resolute [place] stent. 4. Successful Mynx deployment for hemostasis. PLAN Will keep him on dual antiplatelet therapy at least for one year and continue risk modification. JOJO
[2018-02-27] MEDS ORDERED: MAG-AL + SIM ORAL LIQUID 30ml PO PRN (15:37)
[2018-02-27] MEDS ORDERED: PROMETHAZINE 25 MG INJECTION IVP PRN (15:37)
[2018-02-27] MEDS ORDERED: BISACODYL 10 MG SUPPOSITORY RECTALLY PRN (15:37)
[2018-02-27] MEDS ORDERED: METOCLOPRAMIDE 10mg/2ml INJECTION IVP PRN (15:37)
[2018-02-27] MEDS ORDERED: LORazepam 0.5 MG TABLET PO PRN (15:37)
[2018-02-27] MEDS ORDERED: MORPHINE SULFATE 4mg INJECTION IVP PRN ×2 (15:37)
[2018-02-27] MEDS ORDERED: Bisacodyl EC TAB 5 MG TABLET PO PRN (15:37)
[2018-02-27] MEDS ORDERED: ATROPINE 1 MG/ML INJECTION IVP PRN (15:37)
[2018-02-27] MEDS ORDERED: MIX SQ SCH (17:30)
[2018-02-27] MEDS ORDERED: INSULIN NPH SQ SCH (17:30)
[2018-02-27] MEDS ORDERED: ASPART SQ SCH (17:30)
[2018-02-27] MEDS: LISINOPRIL 10 MG PO SCH (18:04)
[2018-02-27] MEDS: --POM--ATORVASTATIN 40 MG TABLET PO SCH ×2 (18:04→21:05)
[2018-02-27] MEDS: ALLOPURINOL 100 MG PO SCH ×2 (18:04→21:05)
[2018-02-28] MEDS ORDERED: ASPART SQ SCH (08:00)
[2018-02-28] MEDS ORDERED: MIX SQ SCH (08:00)
[2018-02-28] MEDS ORDERED: INSULIN NPH SQ SCH (08:00)
[2018-02-28 08:02] VITALS: PULSE 73
[2018-02-28 08:15] VITALS: BP 148/68; RESP 19; TEMP 98; O2SAT 95
[2018-02-28] MEDS: --POM--METOPROLOL TARTRATE 50mg TABLET PO SCH (08:38)
[2018-02-28] MEDS: --POM--CLOPIDOGREL 75 MG TABLET PO SCH (08:39)
[2018-02-28] MEDS: LISINOPRIL 10 MG PO SCH (08:39)
[2018-02-28] MEDS: --POM--ASPIRIN 325 MG TABLET PO SCH (08:39)
[2018-02-28] MEDS ORDERED: --POM--TAMSULOSIN 0.4 MG CAPSULE PO SCH (09:00)
[2018-02-28] MEDS ORDERED: POM CLOPIDOGREL 75 MG TABLET PO SCH (09:00)
[2018-02-28] MEDS ORDERED: ASPIRIN *EC* 81 MG TABLET PO SCH (09:00)
--- NOTE | 2018-02-28 10:38 | Discharge Summary ---
<Guillermina Roland - Last Filed: 02/28/18 10:35> Discharge Information Date of admission: 02/26/18 23:07 Anticipated date of discharge: 02/28/18 Attending Physician: Mani Moy MD Primary care physician: Earl Miller MD Consults: 02/27/18 15:37 Outpt Cardiac Rehab Consult [CONS] Routine - Discharge Diagnosis (1) Precordial chest pain Status: Acute (2) Abnormal findings on diagnostic imaging of heart and coronary circulation Status: Acute (3) Shortness of breath Status: Chronic (4) Atherosclerosis of coronary artery bypass graft without angina pectoris Status: Chronic (5) Occlusion and stenosis of bilateral carotid arteries Status: Chronic (6) Essential (primary) hypertension Status: Chronic (7) Mixed hyperlipidemia Status: Chronic (8) Type 2 diabetes mellitus without complications Status: Chronic CAD - Procedures Procedures: Date of Exam: 02/27/18 Type of Exam(s): CA heart cath LT DATE OF PROCEDURE February 27, [address] Earl Miller The patient is a pleasant 72-year-old gentleman with coronary artery disease and coronary artery bypass graft who was been having recurrence of the angina and was admitted with unstable angina with recent abnormal stress test. He was referred for further evaluation by cardiac catheterization and possible intervention. Informed consent was obtained after explaining the procedure and the potential risks to the patient who agreed to proceed with the procedure. PROCEDURE 1. Left heart catheterization. 2. Coronary angiography. 3. Left ventriculography. 4. Bypass angiography. 5. Selective SULLIVAN angiography. 6. Primary stent of the vein graft to RCA using a 2.75 x 8 mm drug-eluting Resolute [place] stent. 7. Right femoral angiography to visualize the vessel for closure device. 8. Successful Mynx deployment for hemostasis. TECHNIQUE He was prepped and draped in the usual sterile techniques. Conscious sedation was performed using Versed and fentanyl. 1% lidocaine was used for local anesthesia. Using modified Seldinger technique, arterial access was obtained into the right femoral artery with placement of a 6-[place] arterial sheath. 7000 units of heparin was administered for anticoagulation prior to intervention. LEFT VENTRICULOGRAPHY Left ventriculography in single-plane MCCULLOUGH shallow projection showed normal LV systolic function with ejection fraction of about 65% with no mitral regurgitation or gradient across the aortic valve. LVEDP was 8. CORONARY ANGIOGRAPHY Left main had distal 80% stenosis. Left anterior descending artery was occluded at the ostium. Left circumflex artery was small with diffuse disease of up to about 60-70%. The ramus intermedius had about 80% stenosis and it was a small caliber vessel. Right coronary artery was occluded. SULLIVAN to LAD was patent with excellent flow. Collaterals were noted going from LAD to acute marginal branch. A vein graft to RCA had diffuse irregularities of up to about 20-30%. Distal graft at the anastomosis had about 80-90% stenosis. PDA and posterolateral arteries had diffuse disease of up to about 40%. After reviewing the images we decided to proceed with intervention on vein graft to RCA. A 6-[place]ic multipurpose guide was advanced to the ostium of the graft. A Runthrough wire was used to cross the lesion into distal posterolateral artery. A 2.75 x 8 mm drug-eluting Resolute [place] stent was delivered to the lesion site where it was deployed by inflating the balloon to 14 atmospheres. Next, angiogram showed excellent results with no residual stenosis. Right femoral angiography showed patent common femoral, proximal SFA and profunda and therefore Mynx was used for hemostasis. IMPRESSION 1. Normal LV systolic function with ejection fraction of about 65%. 2. Coronary artery disease as described above. 3. Successful primary stent of vein graft to RCA using a 2.75 x 8 mm drug- eluting Resolute [place] stent. 4. Successful Mynx deployment for hemostasis. PLAN Will keep him on dual antiplatelet therapy at least for one year and continue risk modification. - Laboratory Labs: 02/28/18 04:32 02/28/18 04:32 History of Present Illness HPI: Dragan is a 72 year old male who is known to Dr. Moy's practice with a history of CAD with CABG X2 in 99, SOA, Carotid stenosis, HTN, HLD, DM type II and recently had an abnormal stress test which showed moderate LAD ischemia. He was seen in clinic by Dr. Mina on and scheduled for heart catheterization March 18. He was given Isosorbide on a previous visit and had mental status changes as an adverse reaction. Yesterday he presented to the ED for chest pain and shortness of breath. He states he was sitting at home watching TV and at 8:30 PM he suddenly had shortness of breath, chest pain, felt flushed, had nausea and dizziness. He reportedly had similar symptoms he had approximately 20 years ago before he ended up having CABG. He was told if he has any symptoms, he should report immediately to the ED. He took nitroglycerin at home and symptoms improved. He described a sharp, stabbing pain to his left chest, but stated overall he feels like he has an "elephant sitting on my chest." He has been having increased symptoms of shortness of breath and weakness with exertion. This prompted him to follow-up with cardiology and, in turn, prompted his recent cardiac testing. He is admitted to observation in the care of Dr. Moy for further evaluation and Left heart cath later today. Hospital Course This is a general summary of the patient's hospital course. For more details refer to the complete medical record. Hospital course: CP: Reports chest pain, associated with SOA, dizziness, flushing and nausea - relieved eventually by nitro paste - Unable to tolerate Imdur - Recent abnormal stress test which showed moderate LAD ischemia. - NPO for LHC later today - Continue Aspirin, Plavix, BB, ROSA and Statin Abnormal findings on diagnostic imaging of heart and coronary circulation - abnormal stress test which showed moderate LAD ischemia - Originally scheduled for heart catheterization March 18. Shortness of breath - LHC today Atherosclerosis of coronary artery bypass graft without angina pectoris Occlusion and stenosis of bilateral carotid arteries Essential (primary) hypertension - Started on Amlodipine 2.5mg on 02/20/[address] 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 Mixed hyperlipidemia - Takes Atorvastatin, PCP manages Type 2 diabetes mellitus without complications - PCP manages 02/28/18 Patient instructed to orange picking supervisor Amlodipine ordered by Dr. Mina last week and take and record BP 2-3 times a week until his follow up on 03/18/18. Time spent with patient: 25 - 35 minutes Resuscitation Status: Full Code Exam Vital signs: Temperature 98.0 F 02/28/18 08:02 Pulse Rate 73 02/28/18 08:03 Respiratory Rate 19 02/28/18 08:03 Blood Pressure 148/68 H 02/28/18 08:03 Pulse Oximetry 95 02/28/18 08:03 - Constitutional no acute distress, cooperative - Routine HEENT Exam Head: Present: normocephalic ENT: Present: mucous membranes moist - Routine Neck Exam Absent: JVD, carotid bruit - Routine Chest/Breast/Axilla Exam Chest wall: Absent: tenderness - Routine Respiratory Exam Present: CTA bilaterally. Absent: rales, wheezes - Routine Cardiovascular Exam Present: RRR, no murmur - Routine Abdominal Exam Present: soft, non tender - Routine Extremities Exam Present: no edema - Routine Skin Exam Present: intact, dry, warm - Routine Neurological Exam Present: alert, oriented X3 - Routine Psychiatric Exam Present: normal affect, normal thought process Results 02/28/18 04:32 02/28/18 04:32 CBC 02/28/18 Range/Units 04:32 WBC 8.0 (4.5-11.0) T/MM3 RBC 3.87 L (4.50-5.90) M/MM3 Hgb 11.8 L (13.5-17.5) GM/DL Hct 34.8 L (41-53) % Plt Count 120 L (130-400) T/MM3 Neut # (Auto) Not performed Lymph # (Auto) Not performed [place] # (Auto) Not performed Eos # (Auto) Not performed Baso # (Auto) Not performed Comprehensive Metabolic Panel 02/28/18 Range/Units 04:32 Sodium 138 D (134-144) MEQ/L Potassium 4.8 (3.6-5) MEQ/L Chloride 104 (98-107) MEQ/L Carbon Dioxide 23 (22-30) MEQ/L BUN 26.0 H (9-20) MG/DL Creatinine 1.2 (0.8-1.5) mg/dL Glucose 300 H (75-110) MG/DL Calcium 9.3 (8.4-10.2) MG/DL Intake and Output 02/27/18 02/28/18 02/28/18 22:59 06:59 14:59 Intake Total 1342.5 / 1342.5 240 / 240 360 / 360 Output Total 250 / 250 1125 / 1125 100 / 100 Balance 1092.5 / 1092.5 -885 / -885 260 / 260 Intake: IV 862.5 / 862.5 Ns 1,000 ml @ 75 mls/hr IV . 862.5 / 862.5 [id number] JES Rx#:[id number] Oral 480 / 480 240 / 240 360 / 360 Output: Urine 250 / 250 1125 / 1125 100 / 100 Other: Urine Appearance Clear Clear Urine Color Yellow Yellow Stool Color Brown Stool Consistency Soft Size of Bowel Movement Large # Voids 1 Weight 207 lb 3.752 oz Patient Weight 03/01/18 06:59 Weight 207 lb 3.752 oz - Imaging and Cardiology Imaging & Cardiology Narrative: Date of Exam: 02/26/18 Ordering Provider: Farida Langley Type of Exam(s): XR chest 1V Reason for Exam(s): chst pain, soa Indication: chst pain, soa PROCEDURE: XR chest 1V: Encounter: Initial Comparison: January 01, 2018 FINDINGS: The lungs are clear. There is no abnormal airspace opacity, pleural effusion or pneumothorax identified. The heart size, pulmonary vasculature and mediastinum are stable. Poststernotomy changes. IMPRESSION: No acute cardiopulmonary abnormality. 02/28/18 10:36 - EKG Interpretation EKG: sinus rhythm (NS STT changes) Discharge Plan - Med Rec/Dispo Referrals/Follow Up: Mani Moy MD [Physician] - 03/18/18 10:10 am [place] Instructions: [facility] [place] [facility] Heart Cath Prescriptions: Continue Atorvastatin Calcium 40 mg PO HS #0 Novolog Mix 70/30 Sq [Novolog Mix 70-30] 36 unit SQ WB #0 Metoprolol Tartrate 50 mg PO BID #0 Tamsulosin HCl 0.4 mg PO DAILY #0 Clopidogrel Bisulfate [Plavix] 1 tab PO DAILY #0 tab Thiamine HCl (Vitamin B-1) 1 tab PO DAILY #0 Allopurinol 2 tab PO HS #0 tab VITAMIN E 250 unit PO DAILY #0 Lisinopril [Prinivil] 10 mg PO DAILY Novolog Mix 70/30 Sq [Novolog Mix 70-30] 36 unit SQ WS #0 Finasteride 5 mg PO HS #0 Nitroglycerin [Nitrostat] 0.4 mg SL PRN PRN #0 tab PRN Reason: ANGINA Aspirin 325 mg PO DAILY #0 tab Meclizine HCl 25 mg PO Q8H PRN #0 tab PRN Reason: PRN ORDERS Cholecalciferol (Vitamin D3) (Vitamin D) 1 cap PO DAILY #0 - Disposition 01 Discharged Home, Self-Care - Dismissal Complete Discharge Instructions are:: Complete <Mani Moy - Last Filed: 03/04/18 13:41> Discharge Information Date of admission: 02/27/18 21:25 Attending Physician: Mani Moy MD Primary care physician: Earl Miller MD - Discharge Diagnosis (1) Precordial chest pain Status: Acute (2) Abnormal findings on diagnostic imaging of heart and coronary circulation Status: Acute (3) Shortness of breath Status: Chronic (4) Atherosclerosis of coronary artery bypass graft without angina pectoris Status: Chronic (5) Occlusion and stenosis of bilateral carotid arteries Status: Chronic (6) Essential (primary) hypertension Status: Chronic (7) Mixed hyperlipidemia Status: Chronic (8) Type 2 diabetes mellitus without complications Status: Chronic - Laboratory Labs: 02/28/18 04:32 02/28/18 04:32 Hospital Course This is a general summary of the patient's hospital course. For more details refer to the complete medical record. Exam Vital signs: Temperature 98.0 F 02/28/18 08:02 Pulse Rate 73 02/28/18 08:03 Respiratory Rate 19 02/28/18 08:03 Blood Pressure 148/68 H 02/28/18 08:03 Pulse Oximetry 95 02/28/18 08:03 Results 02/28/18 04:32 02/28/18 04:32 Attestation Narriative - Attestation Attestation Narrative: 03/04/18 13:41 Recommendation After examining the patient I agree with the above assessment. I am involved in the formulation of the patient's plan of care.
== END 2018-02-28 11:40 | disposition home or self-care (01) | DRG 247 ==
LOC: ED 21:15 → SRG 21:15 → OBSVTOIN 23:07 → CATH 23:07 → SRG 23:50 → CCU 02-27 14:40 → SRG 02-28 08:55 → MED 02-28 08:55 → CATH 03-01 08:06
PROVIDERS: ADMIT Internal Medicine Cardiovascular Disease; ATTEND Internal Medicine Cardiovascular Disease